=== PATIENT | female | born 1965 | race African-American/Black ===

== ENCOUNTER 2017-08-02 19:39 | Inpatient (IN) | payer OTHER ==
[2017-08-02 20:44] VITALS: BMI 29.0
--- NOTE | 2017-08-02 22:11 | HP ---
Admission ROS [facility] Chief Complaint: Rehab. for alcohol and cocaine dependence Allergies/Adverse Reactions: Allergies Allergy/AdvReac Type Severity Reaction Status Date / Time No Known Drug Allergies Allergy Verified 08/02/17 20:09 fish derived AdvReac Mild Vomiting Verified 08/02/17 20:09 History of Present Illness: 51 years old female is admitted to rehab for alcohol and cocaine dependence. Patient has medical history of HIV, HTN, Gonorrhea and depression. Denies suicidal ideation at this time. Exam Limitations: No Limitations - Ebola screening Have you traveled outside of the country in the last 21 days: No Have you had contact with anyone from an Ebola affected area: No Have you been sick,other than usual withdrawal symptoms: No - Review of Systems Constitutional: No Symptoms Reported EENT: reports: No Symptoms Reported Respiratory: reports: No Symptoms reported Cardiac: reports: No Symptoms Reported GI: reports: No Symptoms Reported : reports: No Symptoms Reported Integumentary: reports: No Symptoms Reported Neuro: reports: No Symptoms reported Endocrine: reports: No Symptoms Reported Hematology: reports: No Symptoms Reported Psychiatric: reports: No Sypmtoms Reported, Mood/Affect Appropiate, Orientated x3 Other Systems: Reviewed and Negative Patient History - Patient Medical History Hx Anemia: Yes Hx Asthma: No Hx Chronic Obstructive Pulmonary Disease (COPD): No Hx Cancer: No Hx Cardiac Disorders: No Hx Congestive Heart Failure: No Hx Hypertension: Yes (on med) Hx Hypercholesterolemia: No Hx Pacemaker: No HX Cerebrovascular Accident: No Hx Seizures: Yes Hx Dementia: No Hx Diabetes: No Hx Gastrointestinal Disorders: No Hx Liver Disease: No Hx Genitourinary Disorders: No Hx Sexually Transmitted Disorders: Yes (Gonorrhea with Tx) Hx Renal Disease (ESRD): No Hx Thyroid Disease: No Hx Human Immunodeficiency Virus (HIV): Yes (Since 1996 on meds) Hx Hepatitis C: No (2016) Hx Depression: Yes Hx Suicide Attempt: Yes (H/o Suicide Attempt years ago overdose) Hx Bipolar Disorder: Yes (ON MEDICATIONS) Hx Schizophrenia: No - Patient Surgical History Past Surgical History: Yes Hx Neurologic Surgery: No Hx Cataract Extraction: No Hx Cardiac Surgery: No Hx Lung Surgery: No Hx Breast Surgery: No Hx Breast Biopsy: No Hx Abdominal Surgery: No Hx Appendectomy: No Hx Cholecystectomy: Yes (05/26 ) Hx Genitourinary Surgery: No Hx Section: Yes (X 1 IN 1991) Hx Orthopedic Surgery: Yes (fx, right knee in 1984) Hx Hysterectomy: No Other Surgical History: BILATERAL CORRECTIVE EYE SX AT 3 YRS OLD Anesthesia Reaction: No - PPD History Previous Implant?: Yes ([facility]) Documented Results: Negative w/proof Date: 06/27/16 Results: 0 mm PPD to be Administered?: Yes - Reproductive History Patient is a Female of Child Bearing Age (11 -55 yrs old): Yes Last Menstrual Period: 08/15/11 Patient : No - Smoking Cessation Smoking history: Never smoked Have you smoked in the past 12 months: No Aproximately how many cigarettes per day: 0 Cigars Per Day: 0 Hx Chewing Tobacco Use: No - Substance & Tx. History Hx Alcohol Use: Yes Hx Substance Use: Yes Substance Use Type: Alcohol, Cocaine Hx Substance Use Treatment: Yes ([facility]) Family Disease History - Family Disease History Family Disease History: Diabetes: Father (HTN; PANCREATIC,ALCOHOLISM-), CA: Grandparent (Grandmother- uterine), Father, Other: Father, Mother (HTN; alcoholic ,dsa,) Admission Physical Exam [facility] - Vital Signs Vital Signs: Vital Signs - 24 hr 08/02/17 20:42 Temperature 96.7 F L Pulse Rate 87 Respiratory 18 Rate Blood Pressure 142/88 - Physical General Appearance: Yes: Within Normal Limits HEENTM: Yes: Within Normal Limits, Other (no teeth) Respiratory: Yes: Lungs Clear, Normal Breath Sounds, No Respiratory Distress Neck: Yes: Supple Breast: Yes: Breast Exam Deferred Cardiology: Yes: Within Normal Limits, Regular Rhythm, Regular Rate, S1, S2 Abdominal: Yes: Normal Bowel Sounds, Soft Genitourinary: Yes: Within Normal Limits Musculoskeletal: Yes: Within Normal Limits Extremities: Yes: Within Normal Limits Neurological: Yes: Within Normal Limits, Alert, Normal Response Integumentary: Yes: Within Normal Limits Lymphatic: Yes: Within Normal Limits - Diagnostic (1) HTN (hypertension) Current Visit: Yes Status: Chronic (2) Alcohol dependence with withdrawal Current Visit: Yes Status: Chronic (3) Depression Current Visit: Yes Status: Chronic (4) Walker as ambulation aid Current Visit: Yes Status: Chronic (5) Alcohol dependence Current Visit: Yes Status: Chronic (6) Anemia Current Visit: Yes Status: Chronic (7) Cocaine dependence Current Visit: Yes Status: Chronic (8) Gastroesophageal reflux disease Current Visit: Yes Status: Chronic (9) Human immunodeficiency virus infection Current Visit: Yes Status: Chronic Cleared for Admission [facility] - Detox or Rehab [facility] Level of Care: Observation Bed Claeared for Rehab Admission: Yes [facility] Breath Alcohol Content Breath Alcohol Content: 0 Urine Pregancy Test - Result Urine Test Results: Negative- NO Line Present Urine Drug Screen - Results Drug Screen Negative: No Urine Drug Screen Results: DARLING-Cocaine Inpatient Rehab Admission - Initial Determination Are CD services needed?: Yes Free of communicable disease: Yes Not in need of hospitalization: Yes - Rehab Admission Criteria Previous failed treatment: Yes Poor recovery environment: Yes Comorbidities: Yes Lacks judgement: No Patient is meeting Inpatient Rehab admission criteria:: Yes
[2017-08-02] MEDS ORDERED: MAGNESIUM CITRATE 300 ML BOTTLE PO PRN (22:22)
[2017-08-02] MEDS ORDERED: ACETAMINOPHEN 325 MG TABLET (FP) PO PRN (22:22)
[2017-08-02] MEDS ORDERED: LOPERAMIDE HCL 2 MG CAPSULE PO PRN (22:22)
[2017-08-02] MEDS ORDERED: MENTHOL/PHENOL 1 EACH UD MM PRN (22:22)
[2017-08-02] MEDS ORDERED: MAG HYDROX/AL HYDROX/SIMETH 30 ML UNIT-DOSE CUP PO PRN (22:22)
[2017-08-02] MEDS ORDERED: MAGNESIUM HYDROX 2400MG/30ML ORAL SUSPENSION 30 ML CUP PO PRN (22:22)
[2017-08-02] MEDS ORDERED: guaiFENesin/D-METHORPHAN HB 10 ML UNIT-DOSE CUPS PO PRN (22:22)
[2017-08-02] MEDS ORDERED: P-EPHED 60MG/TRIPROLIDI 2.5MG TABLET PO PRN (22:22)
[2017-08-03 01:26] LABS: URINE APPEARANCE CLEAR; URINE BILIRUBIN NEGATIVE (NEGATIVE); URINE BLOOD NEGATIVE (NEGATIVE); URINE COLOR YELLOW; URINE GLUCOSE (UA) NEGATIVE (NEGATIVE); URINE KETONE NEGATIVE (NEGATIVE); URINE LEUK ESTERASE NEGATIVE (NEGATIVE); URINE NITRITE NEGATIVE (NEGATIVE); URINE PROTEIN NEGATIVE (NEGATIVE); URINE UROBILINOGEN NEGATIVE mg/dL (0.2-1.0)
[2017-08-03] MEDS: IBUPROFEN 400 MG TABLET (FP) PO PRN ×2 (01:30→06:30)
[2017-08-03] MEDS ORDERED: GABAPENTIN 400 MG CAPSULE (FP) PO SCH (06:00)
[2017-08-03] MEDS: FOLIC ACID 1 MG TABLET (FP) PO SCH (09:53)
[2017-08-03] MEDS: DARUNAVIR ETHANOLATE 800 MG TAB PO SCH (09:54)
[2017-08-03] MEDS: PRENATAL VITAMINS W/ FOLIC ACID TABLET (FP) PO SCH (09:54)
[2017-08-03] MEDS: ABACAVIR SULFATE 300 MG TABLET PO SCH (09:56)
[2017-08-03] MEDS ORDERED: RITONAVIR 100 MG TABLET PO SCH (10:00)
[2017-08-03] MEDS ORDERED: PATIENT'S OWN MEDICATION (NON-FORMULARY) (Abacavir Sulfate/Lamivudine [Epzicom Tablet] 1 T PO SCH (10:00)
[2017-08-03 10:09] LABS: HEMATOCRIT 32.7 % (32.4-45.2); HEMOGLOBIN 10.4 GM/dL (10.7-15.3); MCH 28.9 pg (25.7-33.7); MCHC 31.8 g/dl (32.0-36.0); MEAN CELL VOLUME 90.7 fl (80-96); MEAN PLT VOLUME 7.6 fl (7.5-11.1); PLATELET COUNT 244 K/MM3 (134-434); RBC 3.61 M/mm3 (3.60-5.2)
--- NOTE | 2017-08-03 10:09 | EKG ---
Test Reason : Blood Pressure : / mmHG Vent. Rate : 085 BPM Atrial Rate : 085 BPM P-R Int : 160 ms QRS Dur : 076 ms QT Int : 364 ms P-R-T Axes : 030 021 020 degrees QTc Int : 433 ms NORMAL SINUS RHYTHM SEPTAL INFARCT , AGE UNDETERMINED ABNORMAL ECG NO PREVIOUS ECGS AVAILABLE Confirmed by GUILLERMO BONNER MD ([id number]) on 08/03/2017 10:08:46 AM Referred By: Confirmed By:GUILLERMO BONNER MD
[2017-08-03 10:12] LABS: CHLORIDE 110 mmol/L (98-107); POTASSIUM 4.3 mmol/L (3.5-5.1); SGOT/AST 55 U/L (15-37); SGPT/ALT 51 U/L (12-78); SODIUM 142 mmol/L (136-145)
[2017-08-03 10:18] LABS: ALBUMIN 3.4 g/dl (3.4-5.0); ALK PHOS 82 U/L (45-117); ANION GAP 6 (8-16); BILIRUBIN,TOTAL 0.4 mg/dL (0.2-1.0); BLOOD UREA NITROGEN 20 mg/dL (7-18); CALCIUM 8.7 mg/dL (8.5-10.1); CO2 26 mmol/L (21-32); CREATININE 0.8 mg/dL (0.55-1.02); GLUCOSE,RANDOM 94 mg/dL (74-106); TOT PROT 8.2 g/dl (6.4-8.2)
[2017-08-03] MEDS: RITONAVIR 100 MG TABLET PO SCH (10:55)
--- NOTE | 2017-08-03 11:34 | HP ---
Psychiatrist Admission - Data Date of interview: 08/03/17 Admission source: [facility] Identifying data: This is one of the multiple admissions to [address] [place] [address] for this 56 yo mother of 8,resides at [facility],supported by [facility]. Medical History: Significant for HIV+,HTN,GERD,Anemia,Neuropathy. Psychiatric History: Reports first contact with psychiatrist at 15 yo after DOD when she was admitted to [facility].patient was dx with Bipolar disorder.She reports 7-8 psychiatric hospitalizations.Patient is non compliant with her psychiatric follow up.Currently obtains psychotropic medications from her PCP.Meds:Seroquel 200 mg po hs,Gabapentin 600 mg po tid.Celexa 10 mg po daily.Patient is willing to continue current medications as per plan. Physical/Sexual Abuse/Trauma History: denies Vital Signs: Vital Signs - 24 hr 08/02/17 08/03/17 08/03/17 20:42 01:45 03:30 Temperature 96.7 F L 97.1 F L Pulse Rate 87 84 Respiratory 18 18 16 Rate Blood Pressure 142/88 140/92 08/03/17 08/03/17 06:54 09:23 Temperature 98.0 F Pulse Rate 98 H 106 H Respiratory 18 Rate Blood Pressure 135/85 136/92 Allergies/Adverse Reactions: Allergies Allergy/AdvReac Type Severity Reaction Status Date / Time No Known Drug Allergies Allergy Verified 08/02/17 20:09 fish derived AdvReac Mild Vomiting Verified 08/02/17 20:09 Date of last physical exam: 08/02/17 Concur with the findings of this exam: Yes - Substance Abuse/Tx History Hx Alcohol Use: Yes (reports drinking since 10 yo,2 pints of vodka 3-6 times a week) Hx Substance Use: Yes (crack/cocaine since 23 yo,$100 per week) Substance Use Type: Alcohol, Cocaine Hx Substance Use Treatment: Yes (patient left this program AMA in Jun 2016) Mental Status Exam - Mental Status Exam Alert and Oriented to: Time, Place, Person Cognitive Function: Grossly Intact Patient Appearance: Unkempt Mood: Euthymic Affect: Mood Congruent Patient Behavior: Cooperative Speech Pattern: Clear Voice Loudness: Normal Thought Process: Goal Oriented Thought Disorder: Being Controlled Hallucinations: Denies Suicidal Ideation: Denies Homicidal Ideation: Denies Insight/Judgement: Fair Sleep: Fair Appetite: Good Muscle strength/Tone: Normal Gait/Station: Normal Psychiatric Findings - Problem List ([place] 1, 2,3) (1) Alcohol dependence Current Visit: Yes Status: Chronic (2) Anemia Current Visit: Yes Status: Chronic (3) Cocaine dependence Current Visit: Yes Status: Chronic (4) Gastroesophageal reflux disease Current Visit: Yes Status: Chronic (5) HTN (hypertension) Current Visit: Yes Status: Chronic (6) Human immunodeficiency virus infection Current Visit: Yes Status: Chronic (7) Bipolar II disorder Current Visit: Yes Status: Chronic - Initial Treatment Plan Initial Treatment Plan: Seroquel 200 mg po hs,Celexa 10 mg po daily,Neurontin 600 mg po tid.Will monitor progress.
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
[2017-08-03] MEDS: LIDOCAINE 5% TOPICAL PATCH TP SCH (12:56)
[2017-08-03] MEDS: PANTOPRAZOLE 40 MG TABLET (FP) PO SCH (12:57)
[2017-08-03] MEDS: NAPROXEN 500 MG TABLET (FP) PO SCH ×2 (12:57→21:14)
[2017-08-03] MEDS: amLODIPine BESYLATE 10 MG TABLET (FP) PO SCH (12:58)
[2017-08-03] MEDS: GABAPENTIN 300 MG CAPSULE (FP) PO SCH ×2 (13:02→21:14)
[2017-08-03] MEDS: CITALOPRAM HYDROBROMIDE 10 MG TABLET (FP) PO SCH (13:19)
[2017-08-03] MEDS: THIAMINE HCL 100 MG TABLET (FP) PO SCH (21:14)
[2017-08-03] MEDS: QUEtiapine FUMARATE 200 MG TABLET PO SCH (21:15)
[2017-08-03] MEDS: ATORVASTATIN CA 10 MG TABLET (FP) PO SCH (21:16)
[2017-08-03] MEDS: AMITRIPTYLINE HCL 25 MG TABLET (FP) PO SCH (21:16)
[2017-08-03] MEDS: LIDOCAINE PATCH REMOVAL MC SCH (21:16)
[2017-08-04] MEDS: GABAPENTIN 300 MG CAPSULE (FP) PO SCH ×3 (06:25→21:30)
[2017-08-04] MEDS ORDERED: PT OWN MED DRAWER 7, Y5N ONE (06:37)
[2017-08-04] MEDS: DARUNAVIR ETHANOLATE 800 MG TAB PO SCH (07:35)
[2017-08-04] MEDS: RITONAVIR 100 MG TABLET PO SCH (07:35)
[2017-08-04] MEDS: amLODIPine BESYLATE 10 MG TABLET (FP) PO SCH (10:45)
[2017-08-04] MEDS: CITALOPRAM HYDROBROMIDE 10 MG TABLET (FP) PO SCH (10:45)
[2017-08-04] MEDS: ABACAVIR SULFATE 300 MG TABLET PO SCH (10:46)
[2017-08-04] MEDS: NAPROXEN 500 MG TABLET (FP) PO SCH ×2 (10:48→21:30)
[2017-08-04] MEDS: PANTOPRAZOLE 40 MG TABLET (FP) PO SCH (10:48)
[2017-08-04] MEDS: FOLIC ACID 1 MG TABLET (FP) PO SCH (10:50)
[2017-08-04] MEDS: PRENATAL VITAMINS W/ FOLIC ACID TABLET (FP) PO SCH (10:51)
[2017-08-04] MEDS: LIDOCAINE 5% TOPICAL PATCH TP SCH (10:52)
[2017-08-04] MEDS ORDERED: COLLOIDAL OATMEAL 1 BAR EACH TP PRN (12:37)
[2017-08-04] MEDS: QUEtiapine FUMARATE 200 MG TABLET PO SCH (21:30)
[2017-08-04] MEDS: ATORVASTATIN CA 10 MG TABLET (FP) PO SCH (21:30)
[2017-08-04] MEDS: THIAMINE HCL 100 MG TABLET (FP) PO SCH (21:30)
[2017-08-04] MEDS: AMITRIPTYLINE HCL 25 MG TABLET (FP) PO SCH (21:30)
[2017-08-04] MEDS: LIDOCAINE PATCH REMOVAL MC SCH (21:31)
[2017-08-05] MEDS ORDERED: PT OWN MED DRAWER 7, Y5N ONE ×2 (03:05→06:52)
[2017-08-05] MEDS: GABAPENTIN 300 MG CAPSULE (FP) PO SCH ×3 (06:51→21:33)
[2017-08-05] MEDS: DARUNAVIR ETHANOLATE 800 MG TAB PO SCH (07:42)
[2017-08-05] MEDS: RITONAVIR 100 MG TABLET PO SCH (07:42)
[2017-08-05] MEDS: CITALOPRAM HYDROBROMIDE 10 MG TABLET (FP) PO SCH (10:19)
[2017-08-05] MEDS: PRENATAL VITAMINS W/ FOLIC ACID TABLET (FP) PO SCH (10:19)
[2017-08-05] MEDS: LIDOCAINE 5% TOPICAL PATCH TP SCH (10:19)
[2017-08-05] MEDS: PANTOPRAZOLE 40 MG TABLET (FP) PO SCH (10:19)
[2017-08-05] MEDS: ABACAVIR SULFATE 300 MG TABLET PO SCH (10:19)
[2017-08-05] MEDS: NAPROXEN 500 MG TABLET (FP) PO SCH ×2 (10:19→21:33)
[2017-08-05] MEDS: amLODIPine BESYLATE 10 MG TABLET (FP) PO SCH (10:20)
[2017-08-05] MEDS: THIAMINE HCL 100 MG TABLET (FP) PO SCH (21:32)
[2017-08-05] MEDS: QUEtiapine FUMARATE 200 MG TABLET PO SCH (21:33)
[2017-08-05] MEDS: ATORVASTATIN CA 10 MG TABLET (FP) PO SCH (21:33)
[2017-08-05] MEDS: AMITRIPTYLINE HCL 25 MG TABLET (FP) PO SCH (21:33)
[2017-08-05] MEDS: LIDOCAINE PATCH REMOVAL MC SCH (21:51)
[2017-08-06] MEDS ORDERED: PT OWN MED DRAWER 7, Y5N ONE ×2 (05:55→09:46)
[2017-08-06] MEDS: GABAPENTIN 300 MG CAPSULE (FP) PO SCH ×3 (06:47→21:22)
[2017-08-06] MEDS: DARUNAVIR ETHANOLATE 800 MG TAB PO SCH (07:06)
[2017-08-06] MEDS: RITONAVIR 100 MG TABLET PO SCH (07:07)
[2017-08-06] MEDS: NAPROXEN 500 MG TABLET (FP) PO SCH ×2 (09:44→21:22)
[2017-08-06] MEDS: ABACAVIR SULFATE 300 MG TABLET PO SCH (09:44)
[2017-08-06] MEDS: PANTOPRAZOLE 40 MG TABLET (FP) PO SCH (09:45)
[2017-08-06] MEDS: CITALOPRAM HYDROBROMIDE 10 MG TABLET (FP) PO SCH (09:45)
[2017-08-06] MEDS: PRENATAL VITAMINS W/ FOLIC ACID TABLET (FP) PO SCH (09:45)
[2017-08-06] MEDS: amLODIPine BESYLATE 10 MG TABLET (FP) PO SCH (09:45)
[2017-08-06] MEDS: LIDOCAINE 5% TOPICAL PATCH TP SCH (09:45)
[2017-08-06] MEDS: THIAMINE HCL 100 MG TABLET (FP) PO SCH (21:21)
[2017-08-06] MEDS: AMITRIPTYLINE HCL 25 MG TABLET (FP) PO SCH (21:22)
[2017-08-06] MEDS: QUEtiapine FUMARATE 200 MG TABLET PO SCH (21:22)
[2017-08-06] MEDS: ATORVASTATIN CA 10 MG TABLET (FP) PO SCH (21:22)
[2017-08-06] MEDS: LIDOCAINE PATCH REMOVAL MC SCH (21:23)
[2017-08-07] MEDS: GABAPENTIN 300 MG CAPSULE (FP) PO SCH ×3 (06:43→21:30)
[2017-08-07] MEDS: DARUNAVIR ETHANOLATE 800 MG TAB PO SCH (07:39)
[2017-08-07] MEDS: RITONAVIR 100 MG TABLET PO SCH (07:39)
[2017-08-07] MEDS ORDERED: PT OWN MED DRAWER 7, Y5N ONE ×2 (07:40→08:57)
[2017-08-07] MEDS: LIDOCAINE 5% TOPICAL PATCH TP SCH (09:52)
[2017-08-07] MEDS: NAPROXEN 500 MG TABLET (FP) PO SCH ×2 (09:53→21:30)
[2017-08-07] MEDS: amLODIPine BESYLATE 10 MG TABLET (FP) PO SCH (09:53)
[2017-08-07] MEDS: PRENATAL VITAMINS W/ FOLIC ACID TABLET (FP) PO SCH (09:53)
[2017-08-07] MEDS: ABACAVIR SULFATE 300 MG TABLET PO SCH (09:53)
[2017-08-07] MEDS: PANTOPRAZOLE 40 MG TABLET (FP) PO SCH (09:53)
[2017-08-07] MEDS: CITALOPRAM HYDROBROMIDE 10 MG TABLET (FP) PO SCH (09:54)
[2017-08-07] MEDS: QUEtiapine FUMARATE 200 MG TABLET PO SCH (21:29)
[2017-08-07] MEDS: ATORVASTATIN CA 10 MG TABLET (FP) PO SCH (21:29)
[2017-08-07] MEDS: THIAMINE HCL 100 MG TABLET (FP) PO SCH (21:29)
[2017-08-07] MEDS: AMITRIPTYLINE HCL 25 MG TABLET (FP) PO SCH (21:30)
[2017-08-07] MEDS: LIDOCAINE PATCH REMOVAL MC SCH (21:31)
[2017-08-08] MEDS ORDERED: PT OWN MED DRAWER 7, Y5N ONE ×3 (05:49→08:33)
[2017-08-08] MEDS: GABAPENTIN 300 MG CAPSULE (FP) PO SCH ×3 (06:42→21:18)
[2017-08-08] MEDS: RITONAVIR 100 MG TABLET PO SCH (07:35)
[2017-08-08] MEDS: DARUNAVIR ETHANOLATE 800 MG TAB PO SCH (07:35)
[2017-08-08] MEDS: amLODIPine BESYLATE 10 MG TABLET (FP) PO SCH (09:50)
[2017-08-08] MEDS: PRENATAL VITAMINS W/ FOLIC ACID TABLET (FP) PO SCH (09:50)
[2017-08-08] MEDS: PANTOPRAZOLE 40 MG TABLET (FP) PO SCH (09:50)
[2017-08-08] MEDS: LIDOCAINE 5% TOPICAL PATCH TP SCH (09:50)
[2017-08-08] MEDS: CITALOPRAM HYDROBROMIDE 10 MG TABLET (FP) PO SCH (09:50)
[2017-08-08] MEDS: NAPROXEN 500 MG TABLET (FP) PO SCH ×2 (09:50→21:19)
[2017-08-08] MEDS: ABACAVIR SULFATE 300 MG TABLET PO SCH (09:50)
[2017-08-08] MEDS: LIDOCAINE PATCH REMOVAL MC SCH (21:19)
[2017-08-08] MEDS: AMITRIPTYLINE HCL 25 MG TABLET (FP) PO SCH (21:19)
[2017-08-08] MEDS: THIAMINE HCL 100 MG TABLET (FP) PO SCH (21:19)
[2017-08-08] MEDS: QUEtiapine FUMARATE 200 MG TABLET PO SCH (21:19)
[2017-08-08] MEDS: ATORVASTATIN CA 10 MG TABLET (FP) PO SCH (21:19)
[2017-08-09] MEDS ORDERED: PT OWN MED DRAWER 7, Y5N ONE (05:19)
[2017-08-09] MEDS: GABAPENTIN 300 MG CAPSULE (FP) PO SCH ×3 (06:16→21:26)
[2017-08-09] MEDS: DARUNAVIR ETHANOLATE 800 MG TAB PO SCH (09:00)
[2017-08-09] MEDS: RITONAVIR 100 MG TABLET PO SCH (09:01)
[2017-08-09] MEDS: PANTOPRAZOLE 40 MG TABLET (FP) PO SCH (09:02)
[2017-08-09] MEDS: PRENATAL VITAMINS W/ FOLIC ACID TABLET (FP) PO SCH (09:02)
[2017-08-09] MEDS: ABACAVIR SULFATE 300 MG TABLET PO SCH (09:02)
[2017-08-09] MEDS: LIDOCAINE 5% TOPICAL PATCH TP SCH (09:03)
[2017-08-09] MEDS: CITALOPRAM HYDROBROMIDE 10 MG TABLET (FP) PO SCH (09:03)
[2017-08-09] MEDS: amLODIPine BESYLATE 10 MG TABLET (FP) PO SCH (09:03)
[2017-08-09] MEDS: NAPROXEN 500 MG TABLET (FP) PO SCH ×2 (09:03→21:26)
[2017-08-09] MEDS: LIDOCAINE PATCH REMOVAL MC SCH (21:26)
[2017-08-09] MEDS: ATORVASTATIN CA 10 MG TABLET (FP) PO SCH (21:26)
[2017-08-09] MEDS: QUEtiapine FUMARATE 200 MG TABLET PO SCH (21:26)
[2017-08-09] MEDS: THIAMINE HCL 100 MG TABLET (FP) PO SCH (21:26)
[2017-08-09] MEDS: AMITRIPTYLINE HCL 25 MG TABLET (FP) PO SCH (21:26)
[2017-08-10] MEDS ORDERED: PT OWN MED DRAWER 7, Y5N ONE (05:28)
[2017-08-10] MEDS: GABAPENTIN 300 MG CAPSULE (FP) PO SCH ×3 (06:37→21:39)
[2017-08-10] MEDS: DARUNAVIR ETHANOLATE 800 MG TAB PO SCH (07:22)
[2017-08-10] MEDS: RITONAVIR 100 MG TABLET PO SCH (07:22)
[2017-08-10] MEDS: NAPROXEN 500 MG TABLET (FP) PO SCH ×2 (10:02→21:39)
[2017-08-10] MEDS: ABACAVIR SULFATE 300 MG TABLET PO SCH (10:02)
[2017-08-10] MEDS: PANTOPRAZOLE 40 MG TABLET (FP) PO SCH (10:02)
[2017-08-10] MEDS: PRENATAL VITAMINS W/ FOLIC ACID TABLET (FP) PO SCH (10:02)
[2017-08-10] MEDS: CITALOPRAM HYDROBROMIDE 10 MG TABLET (FP) PO SCH (10:02)
[2017-08-10] MEDS: LIDOCAINE 5% TOPICAL PATCH TP SCH (10:03)
[2017-08-10] MEDS: amLODIPine BESYLATE 10 MG TABLET (FP) PO SCH (10:03)
[2017-08-10] MEDS: ATORVASTATIN CA 10 MG TABLET (FP) PO SCH (21:39)
[2017-08-10] MEDS: AMITRIPTYLINE HCL 25 MG TABLET (FP) PO SCH (21:39)
[2017-08-10] MEDS: QUEtiapine FUMARATE 200 MG TABLET PO SCH (21:39)
[2017-08-10] MEDS: THIAMINE HCL 100 MG TABLET (FP) PO SCH (21:39)
[2017-08-10] MEDS: LIDOCAINE PATCH REMOVAL MC SCH (21:40)
[2017-08-11] MEDS ORDERED: PT OWN MED DRAWER 7, Y5N ONE ×2 (06:07→09:16)
[2017-08-11] MEDS: GABAPENTIN 300 MG CAPSULE (FP) PO SCH ×3 (06:37→21:37)
[2017-08-11] MEDS: RITONAVIR 100 MG TABLET PO SCH (07:32)
[2017-08-11] MEDS: ABACAVIR SULFATE 300 MG TABLET PO SCH ×2 (07:32→10:27)
[2017-08-11] MEDS: DARUNAVIR ETHANOLATE 800 MG TAB PO SCH (07:32)
[2017-08-11] MEDS: LIDOCAINE 5% TOPICAL PATCH TP SCH (10:25)
[2017-08-11] MEDS: PANTOPRAZOLE 40 MG TABLET (FP) PO SCH (10:26)
[2017-08-11] MEDS: NAPROXEN 500 MG TABLET (FP) PO SCH ×2 (10:26→21:37)
[2017-08-11] MEDS: amLODIPine BESYLATE 10 MG TABLET (FP) PO SCH (10:26)
[2017-08-11] MEDS: CITALOPRAM HYDROBROMIDE 10 MG TABLET (FP) PO SCH (10:26)
[2017-08-11] MEDS: PRENATAL VITAMINS W/ FOLIC ACID TABLET (FP) PO SCH (10:26)
[2017-08-11] MEDS: LIDOCAINE PATCH REMOVAL MC SCH (21:37)
[2017-08-11] MEDS: ATORVASTATIN CA 10 MG TABLET (FP) PO SCH (21:37)
[2017-08-11] MEDS: AMITRIPTYLINE HCL 25 MG TABLET (FP) PO SCH (21:37)
[2017-08-11] MEDS: THIAMINE HCL 100 MG TABLET (FP) PO SCH (21:37)
[2017-08-11] MEDS: QUEtiapine FUMARATE 200 MG TABLET PO SCH (21:37)
[2017-08-12] MEDS ORDERED: PT OWN MED DRAWER 7, Y5N ONE ×4 (05:51→07:55)
[2017-08-12] MEDS: GABAPENTIN 300 MG CAPSULE (FP) PO SCH ×3 (06:21→21:40)
[2017-08-12] MEDS: RITONAVIR 100 MG TABLET PO SCH (07:11)
[2017-08-12] MEDS: DARUNAVIR ETHANOLATE 800 MG TAB PO SCH (07:11)
[2017-08-12] MEDS: ABACAVIR SULFATE 300 MG TABLET PO SCH (07:52)
[2017-08-12] MEDS: CITALOPRAM HYDROBROMIDE 10 MG TABLET (FP) PO SCH (10:54)
[2017-08-12] MEDS: NAPROXEN 500 MG TABLET (FP) PO SCH ×2 (10:54→21:40)
[2017-08-12] MEDS: LIDOCAINE 5% TOPICAL PATCH TP SCH (10:54)
[2017-08-12] MEDS: PRENATAL VITAMINS W/ FOLIC ACID TABLET (FP) PO SCH (10:54)
[2017-08-12] MEDS: PANTOPRAZOLE 40 MG TABLET (FP) PO SCH (10:54)
[2017-08-12] MEDS: amLODIPine BESYLATE 10 MG TABLET (FP) PO SCH (10:54)
--- NOTE | 2017-08-12 11:10 | PN ---
Psychiatric Progress Note Vital Signs: Vital Signs Period Temp Pulse Resp BP Sys/Pichardo Pulse Ox Last 24 Hr 98.7 F 64-110 17-18 93-95/67-69 Date of Session: 08/12/17 Chief Complaint:: Follow up visit before discharge. HPI: Patient addressed Alcohol and Cocaine dependence comorbid with Bipolar II Disorder. ROS: Significant for Anemia,HIV+,GERD. Current Medications: Active Medications Generic Name Dose Route Start Last Admin Trade Name Freq PRN Reason Stop Dose Admin Abacavir Sulfate 600 mg 08/12/17 08:00 08/12/17 07:52 Ziagen - PO 600 mg DAILY@0800 MARY Administration Acetaminophen 650 mg 08/02/17 22:22 08/11/17 14:09 Tylenol - PO 650 mg Q4H PRN Administration PAIN Al Hydroxide/Mg Hydroxide 30 ml 08/02/17 22:22 Mylanta Oral Suspension - PO Q6H PRN DYSPEPSIA Amitriptyline HCl 25 mg 08/03/17 22:00 08/11/17 21:37 Elavil - PO 25 mg HS MARY Administration Amlodipine Besylate 10 mg 08/03/17 12:15 08/12/17 10:54 Norvasc - PO 10 mg DAILY MARY Administration Atorvastatin Calcium 10 mg 08/03/17 22:00 08/11/17 21:37 Lipitor - PO 10 mg HS MARY Administration Citalopram Hydrobromide 10 mg 08/03/17 13:00 08/12/17 10:54 Celexa - PO 10 mg DAILY MARY Administration Colloidal Oatmeal 1 applic 08/04/17 12:37 08/08/17 21:21 Aveeno Soap - TP 1 applic DAILY PRN Administration HYGEINE Darunavir 800 mg 08/03/17 10:00 08/12/17 07:11 Prezista - PO 800 mg DAILY@0800 MARY Administration Eucalyptus/Menthol/Phenol/Sorbitol 1 each 08/02/17 22:22 Cepastat Lozenge - MM Q4H PRN SORE THROAT Gabapentin 600 mg 08/03/17 14:00 08/12/17 06:21 Neurontin - PO 600 mg TID MARY Administration Guaifenesin 10 ml 08/02/17 22:22 Robitussin Dm - PO Q6H PRN COUGH Ibuprofen 400 mg 08/02/17 22:22 12/20/17 06:30 Motrin - PO 400 mg Q6H PRN Administration SEVERE PAIN Lamivudine 300 mg 08/12/17 08:00 08/12/17 07:55 Epivir - PO 300 mg DAILY@0800 MARY Administration Lidocaine 1 patch 08/03/17 12:15 08/12/17 10:54 Lidoderm Patch - TP 1 patch DAILY MARY Administration Loperamide HCl 4 mg 08/02/17 22:22 Imodium - PO Q6H PRN DIARRHEA Magnesium Citrate 300 ml 08/02/17 22:22 Citroma - PO Q48H PRN CONSTIPATION Magnesium Hydroxide 30 ml 08/02/17 22:22 Milk Of Magnesia - PO DAILY PRN CONSTIPATION Miscellaneous 1 each 08/03/17 22:00 08/11/17 21:37 Lidoderm Patch Removal MC Not Given DAILY@2200 [facility] Naproxen 500 mg 08/03/17 12:15 08/12/17 10:54 Naprosyn - PO 500 mg BID MARY Administration Pantoprazole Sodium 40 mg 08/03/17 12:15 08/12/17 10:54 Protonix - PO 40 mg DAILY MARY Administration Multivit/Folic Acid/Iron 1 tab 08/03/17 10:00 08/12/17 10:54 Vitamins (Sjr) - PO 1 tab DAILY MARY Administration Pseudoephedrine/Triprolidine 1 combo 08/02/17 22:22 08/05/17 06:53 Actifed - PO 1 combo TID PRN Administration NASAL CONGESTION Quetiapine Fumarate 200 mg 08/03/17 22:00 08/11/17 21:37 Seroquel - PO 200 mg HS MARY Administration Ritonavir 100 mg 08/03/17 10:55 08/12/17 07:11 Norvir - PO 100 mg DAILY@0800 MARY Administration Thiamine HCl 100 mg 08/03/17 22:00 08/11/17 21:37 Vitamin B1 - PO 100 mg HS MARY Administration Current Side Effect: No Lab tests ordered: No Lab tests reviewed: Yes Provider note:: Patient was seen today.She will complete this program on Aug 16, 2017.Patient appears stable.she haw met her treatment goals and will continue to address her issues on outpaatient basis at [facility].Patient reports finding that Elavil 25 mg po daily,Neurontin 400 mg po tid,Celexa 10 mg po daily and Seroquel 200 mg po hs help to cope with mood swings,anxiety,depression,insomnia.Scripts for 30 days provided. Supportive therapy provided focusing on relapse prevention,coping skills,support utilization to maintain recovery has been discussed with the patient. Mental Status Exam - Mental Status Exam Alert and Oriented to: Time, Place, Person Cognitive Function: Grossly Intact Patient Appearance: Well Groomed Mood: Hopeful, Euthymic Affect: Mood Congruent Patient Behavior: Cooperative Speech Pattern: Clear Voice Loudness: Normal Thought Process: Goal Oriented Thought Disorder: Not Present Hallucinations: Denies Suicidal Ideation: Denies Homicidal Ideation: Denies Insight/Judgement: Fair Sleep: Fair Appetite: Good Muscle strength/Tone: Normal Gait/Station: Normal Psychiatric Treatment Plan - Problem List (1) Alcohol dependence Current Visit: Yes (2) Anemia Current Visit: Yes (3) Cocaine dependence Current Visit: Yes (4) Gastroesophageal reflux disease Current Visit: Yes (5) HTN (hypertension) Current Visit: Yes (6) Human immunodeficiency virus infection Current Visit: Yes (7) Bipolar II disorder Current Visit: Yes
[2017-08-12] MEDS: AMITRIPTYLINE HCL 25 MG TABLET (FP) PO SCH (21:40)
[2017-08-12] MEDS: ATORVASTATIN CA 10 MG TABLET (FP) PO SCH (21:41)
[2017-08-12] MEDS: QUEtiapine FUMARATE 200 MG TABLET PO SCH (21:41)
[2017-08-12] MEDS: THIAMINE HCL 100 MG TABLET (FP) PO SCH (21:41)
[2017-08-12] MEDS: LIDOCAINE PATCH REMOVAL MC SCH (21:42)
[2017-08-13] MEDS ORDERED: PT OWN MED DRAWER 7, Y5N ONE ×2 (03:29→07:58)
[2017-08-13] MEDS: GABAPENTIN 300 MG CAPSULE (FP) PO SCH ×3 (06:38→21:26)
[2017-08-13] MEDS: ABACAVIR SULFATE 300 MG TABLET PO SCH (07:52)
[2017-08-13] MEDS: DARUNAVIR ETHANOLATE 800 MG TAB PO SCH (07:55)
[2017-08-13] MEDS: RITONAVIR 100 MG TABLET PO SCH (07:55)
[2017-08-13] MEDS: NAPROXEN 500 MG TABLET (FP) PO SCH ×2 (10:09→21:26)
[2017-08-13] MEDS: PRENATAL VITAMINS W/ FOLIC ACID TABLET (FP) PO SCH (10:09)
[2017-08-13] MEDS: CITALOPRAM HYDROBROMIDE 10 MG TABLET (FP) PO SCH (10:10)
[2017-08-13] MEDS: LIDOCAINE 5% TOPICAL PATCH TP SCH (10:10)
[2017-08-13] MEDS: PANTOPRAZOLE 40 MG TABLET (FP) PO SCH (10:10)
[2017-08-13] MEDS: amLODIPine BESYLATE 10 MG TABLET (FP) PO SCH (10:10)
[2017-08-13] MEDS: ATORVASTATIN CA 10 MG TABLET (FP) PO SCH (21:26)
[2017-08-13] MEDS: THIAMINE HCL 100 MG TABLET (FP) PO SCH (21:26)
[2017-08-13] MEDS: LIDOCAINE PATCH REMOVAL MC SCH (21:26)
[2017-08-13] MEDS: AMITRIPTYLINE HCL 25 MG TABLET (FP) PO SCH (21:27)
[2017-08-13] MEDS: QUEtiapine FUMARATE 200 MG TABLET PO SCH (21:27)
[2017-08-14] MEDS: GABAPENTIN 300 MG CAPSULE (FP) PO SCH ×3 (06:32→21:25)
[2017-08-14] MEDS: ABACAVIR SULFATE 300 MG TABLET PO SCH (07:50)
[2017-08-14] MEDS: DARUNAVIR ETHANOLATE 800 MG TAB PO SCH (07:51)
[2017-08-14] MEDS: RITONAVIR 100 MG TABLET PO SCH (07:51)
[2017-08-14] MEDS ORDERED: PT OWN MED DRAWER 7, Y5N ONE (07:59)
[2017-08-14] MEDS: LIDOCAINE 5% TOPICAL PATCH TP SCH (10:16)
[2017-08-14] MEDS: PRENATAL VITAMINS W/ FOLIC ACID TABLET (FP) PO SCH (10:16)
[2017-08-14] MEDS: NAPROXEN 500 MG TABLET (FP) PO SCH ×2 (10:16→21:25)
[2017-08-14] MEDS: amLODIPine BESYLATE 10 MG TABLET (FP) PO SCH (10:17)
[2017-08-14] MEDS: PANTOPRAZOLE 40 MG TABLET (FP) PO SCH (10:17)
[2017-08-14] MEDS: CITALOPRAM HYDROBROMIDE 10 MG TABLET (FP) PO SCH (10:17)
[2017-08-14] MEDS: AMITRIPTYLINE HCL 25 MG TABLET (FP) PO SCH (21:25)
[2017-08-14] MEDS: QUEtiapine FUMARATE 200 MG TABLET PO SCH (21:25)
[2017-08-14] MEDS: ATORVASTATIN CA 10 MG TABLET (FP) PO SCH (21:25)
[2017-08-14] MEDS: THIAMINE HCL 100 MG TABLET (FP) PO SCH (21:25)
[2017-08-14] MEDS: LIDOCAINE PATCH REMOVAL MC SCH (21:27)
[2017-08-15] MEDS: GABAPENTIN 300 MG CAPSULE (FP) PO SCH ×3 (06:35→21:31)
[2017-08-15] MEDS: DARUNAVIR ETHANOLATE 800 MG TAB PO SCH (08:01)
[2017-08-15] MEDS: ABACAVIR SULFATE 300 MG TABLET PO SCH (08:01)
[2017-08-15] MEDS: RITONAVIR 100 MG TABLET PO SCH (08:02)
[2017-08-15] MEDS: NAPROXEN 500 MG TABLET (FP) PO SCH ×2 (10:21→21:31)
[2017-08-15] MEDS: PANTOPRAZOLE 40 MG TABLET (FP) PO SCH (10:21)
[2017-08-15] MEDS: CITALOPRAM HYDROBROMIDE 10 MG TABLET (FP) PO SCH (10:21)
[2017-08-15] MEDS: LIDOCAINE 5% TOPICAL PATCH TP SCH (10:21)
[2017-08-15] MEDS: PRENATAL VITAMINS W/ FOLIC ACID TABLET (FP) PO SCH (10:21)
[2017-08-15] MEDS: amLODIPine BESYLATE 10 MG TABLET (FP) PO SCH (10:22)
[2017-08-15] MEDS: AMITRIPTYLINE HCL 25 MG TABLET (FP) PO SCH (21:31)
[2017-08-15] MEDS: ATORVASTATIN CA 10 MG TABLET (FP) PO SCH (21:31)
[2017-08-15] MEDS: THIAMINE HCL 100 MG TABLET (FP) PO SCH (21:31)
[2017-08-15] MEDS: QUEtiapine FUMARATE 200 MG TABLET PO SCH (21:31)
[2017-08-15] MEDS: LIDOCAINE PATCH REMOVAL MC SCH (21:32)
[2017-08-16] MEDS: GABAPENTIN 300 MG CAPSULE (FP) PO SCH (06:29)
[2017-08-16 07:23] VITALS: BP 123/86; PULSE 98; TEMP 97.3
[2017-08-16] MEDS: ABACAVIR SULFATE 300 MG TABLET PO SCH (07:45)
[2017-08-16] MEDS: RITONAVIR 100 MG TABLET PO SCH (07:45)
[2017-08-16] MEDS: DARUNAVIR ETHANOLATE 800 MG TAB PO SCH (07:45)
[2017-08-16] MEDS: PRENATAL VITAMINS W/ FOLIC ACID TABLET (FP) PO SCH (09:59)
[2017-08-16] MEDS: LIDOCAINE 5% TOPICAL PATCH TP SCH (09:59)
[2017-08-16] MEDS: CITALOPRAM HYDROBROMIDE 10 MG TABLET (FP) PO SCH (09:59)
[2017-08-16] MEDS: PANTOPRAZOLE 40 MG TABLET (FP) PO SCH (09:59)
[2017-08-16] MEDS: amLODIPine BESYLATE 10 MG TABLET (FP) PO SCH (09:59)
[2017-08-16] MEDS: NAPROXEN 500 MG TABLET (FP) PO SCH (09:59)
[2017-08-16] MEDS ORDERED: PT OWN MED DRAWER 7, Y5N ONE (10:01)
== END 2017-08-16 10:03 | disposition home or self-care (01) | DRG 772 ==
LOC: YASAS 19:39 → Y3E 21:25
PROVIDERS: ADMIT Psychiatry & Neurology Psychiatry; ATTEND Psychiatry & Neurology Psychiatry
PROC: HZ42ZZZ Group Counseling for Substance Abuse Treatment, Cognitive-Behavioral (ICD-10-PCS; principal; 2017-07-31)
DX: F10.20 Alcohol dependence, uncomplicated (principal); F14.20 Cocaine dependence, uncomplicated; F31.81 Bipolar II disorder; I10 Essential (primary) hypertension; D64.9 Anemia, unspecified; K21.9 Gastro-esophageal reflux disease without esophagitis; Z21 Asymptomatic human immunodeficiency virus [HIV] infection status; G62.9 Polyneuropathy, unspecified; R26.2 Difficulty in walking, not elsewhere classified; Z99.89 Dependence on other enabling machines and devices; Z91.013 Allergy to seafood; Z87.42 Personal history of other diseases of the female genital tract; Z86.69 Personal history of other diseases of the nervous system and sense organs; Z91.5 Personal history of self-harm
CPT/HCPCS: 36415; 80053; 81003; 85027; 86593; 93005; 93010

== ENCOUNTER 2018-01-30 13:06 | Inpatient (IN) | payer OTHER ==
[2018-01-30 13:20] VITALS: BMI 30.3
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
[2018-01-30] MEDS ORDERED: guaiFENesin/D-METHORPHAN HB 10 ML UNIT-DOSE CUPS PO PRN (15:12)
[2018-01-30] MEDS ORDERED: MAGNESIUM HYDROX 2400MG/30ML ORAL SUSPENSION 30 ML CUP PO PRN (15:12)
[2018-01-30] MEDS ORDERED: P-EPHED 60MG/TRIPROLIDI 2.5MG TABLET PO PRN (15:12)
[2018-01-30] MEDS ORDERED: MENTHOL/PHENOL 1 EACH UD MM PRN (15:12)
[2018-01-30] MEDS ORDERED: MAG HYDROX/AL HYDROX/SIMETH 30 ML UNIT-DOSE CUP PO PRN (15:12)
[2018-01-30] MEDS ORDERED: IBUPROFEN 400 MG TABLET (FP) PO PRN (15:12)
[2018-01-30] MEDS ORDERED: ACETAMINOPHEN 325 MG TABLET (FP) PO PRN (15:12)
[2018-01-30] MEDS ORDERED: MAGNESIUM CITRATE 300 ML BOTTLE PO PRN (15:12)
[2018-01-30] MEDS ORDERED: LOPERAMIDE HCL 2 MG CAPSULE PO PRN (15:12)
[2018-01-30] MEDS ORDERED: diazePAM 5 MG TABLET PO ONE (15:45)
[2018-01-30] MEDS ORDERED: MELATONIN 5 MG TABLETS PO PRN (22:00)
[2018-01-30] MEDS: ATORVASTATIN CA 10 MG TABLET (FP) PO SCH (22:17)
[2018-01-30] MEDS: diazePAM 5 MG TABLET PO SCH (22:17)
[2018-01-30] MEDS: GABAPENTIN 300 MG CAPSULE (FP) PO SCH (22:17)
[2018-01-30] MEDS: THIAMINE HCL 100 MG TABLET (FP) PO SCH (22:18)
[2018-01-31] MEDS: diazePAM 5 MG TABLET PO SCH ×3 (05:28→22:10)
[2018-01-31] MEDS: GABAPENTIN 300 MG CAPSULE (FP) PO SCH ×3 (05:29→22:11)
[2018-01-31] MEDS: DARUNAVIR ETHANOLATE 800 MG TAB PO SCH (08:46)
[2018-01-31] MEDS: EMTRICITABINE 200MG/TENOFOVIR 300MG PO SCH (08:46)
[2018-01-31] MEDS: RITONAVIR 100 MG TABLET PO SCH (08:47)
[2018-01-31] MEDS ORDERED: amLODIPine BESYLATE 10 MG TABLET (FP) PO SCH (10:00)
[2018-01-31] MEDS: PRENATAL VITAMINS W/ FOLIC ACID TABLET (FP) PO SCH (10:01)
[2018-01-31] MEDS: amLODIPine BESYLATE 10 MG TABLET (FP) PO SCH (10:01)
[2018-01-31] MEDS: diazePAM 5 MG TABLET PO PRN ×2 (10:02→17:42)
[2018-01-31 10:09] LABS: HEMATOCRIT 29.2 % (32.4-45.2); HEMOGLOBIN 9.5 GM/dL (10.7-15.3); MCHC 32.4 g/dl (32.0-36.0); MEAN CELL VOLUME 89.4 fl (80-96); MEAN PLT VOLUME 8.4 fl (7.5-11.1); PLATELET COUNT 163 K/MM3 (134-434); RBC 3.27 M/mm3 (3.60-5.2); RDW 16.4 % (11.6-15.6); WHITE BLOOD COUNT 4.3 K/mm3 (4.0-10.0)
[2018-01-31 10:25] LABS: CHLORIDE 110 mmol/L (98-107); POTASSIUM 3.7 mmol/L (3.5-5.1); SODIUM 144 mmol/L (136-145)
[2018-01-31 11:37] LABS: ALBUMIN 2.8 g/dl (3.4-5.0); ALK PHOS 77 U/L (45-117); ANION GAP 9 (8-16); BILIRUBIN,TOTAL 0.2 mg/dL (0.2-1.0); BLOOD UREA NITROGEN 13 mg/dL (7-18); CALCIUM 8.2 mg/dL (8.5-10.1); CO2 25 mmol/L (21-32); CREATININE 0.8 mg/dL (0.55-1.02); GLUCOSE,RANDOM 103 mg/dL (74-106); SGOT/AST 24 U/L (15-37); SGPT/ALT 20 U/L (12-78); TOT PROT 6.8 g/dl (6.4-8.2)
--- NOTE | 2018-01-31 12:27 | PN ---
S CIWA - CIWA Score Nausea/Vomitin-Mild Nausea/No Vomiting Muscle Tremors: 4-Moderate,w/Arms Extend Anxiety: 3 Agitation: 3 Paroxysmal Sweats: 1-Minimal Palms Moist Orientation: 0-Oriented Tacttile Disturbances: 1-Very Mild Itch/Numbness Auditory Disturbances: 0-None Visual Disturbances: 0-None Headache: 0-None Present CIWA-Ar Total Score: 13 BHS Progress Note (SOAP) Subjective: tremor sweat trouble sleep at night anxiety restlessness Objective: 01/31/18 12:26 Vital Signs Temperature 97.9 F 01/31/18 09:25 Pulse Rate 87 01/31/18 09:25 Respiratory Rate 18 01/31/18 09:25 Blood Pressure 125/90 01/31/18 09:25 O2 Sat by Pulse Oximetry (%) Laboratory Last Values WBC 4.3 K/mm3 (4.0-10.0) 01/31/18 07:00 RBC 3.27 M/mm3 (3.60-5.2) L 01/31/18 07:00 Hgb 9.5 GM/dL (10.7-15.3) L 01/31/18 07:00 Hct 29.2 % (32.4-45.2) L 01/31/18 07:00 MCV 89.4 fl (80-96) 01/31/18 07:00 MCH 29.0 pg (25.7-33.7) 01/31/18 07:00 MCHC 32.4 g/dl (32.0-36.0) 01/31/18 07:00 RDW 16.4 % (11.6-15.6) H 01/31/18 07:00 Plt Count 163 K/MM3 (134-434) D 01/31/18 07:00 MPV 8.4 fl (7.5-11.1) D 01/31/18 07:00 Sodium 144 mmol/L (136-145) 01/31/18 07:00 Potassium 3.7 mmol/L (3.5-5.1) 01/31/18 07:00 Chloride 110 mmol/L (98-107) H 01/31/18 07:00 Carbon Dioxide 25 mmol/L (21-32) 01/31/18 07:00 Anion Gap 9 (8-16) 01/31/18 07:00 BUN 13 mg/dL (7-18) 01/31/18 07:00 Creatinine 0.8 mg/dL (0.55-1.02) 01/31/18 07:00 Creat Clearance w eGFR > 60 (>60) 01/31/18 07:00 Random Glucose 103 mg/dL (74-106) 01/31/18 07:00 Calcium 8.2 mg/dL (8.5-10.1) L 01/31/18 07:00 Total Bilirubin 0.2 mg/dL (0.2-1.0) D 01/31/18 07:00 AST 24 U/L (15-37) 01/31/18 07:00 ALT 20 U/L (12-78) 01/31/18 07:00 Alkaline Phosphatase 77 U/L (45-117) 01/31/18 07:00 Total Protein 6.8 g/dl (6.4-8.2) 01/31/18 07:00 Albumin 2.8 g/dl (3.4-5.0) L 01/31/18 07:00 RPR Titer Nonreactive (NONREACTIVE) 01/31/18 07:00 lab noted Assessment: 01/31/18 12:26 withdrawal sx Plan: continue detox
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
--- NOTE | 2018-01-31 14:19 | EKG ---
Test Reason : Blood Pressure : / mmHG Vent. Rate : 070 BPM Atrial Rate : 070 BPM P-R Int : 150 ms QRS Dur : 076 ms QT Int : 390 ms P-R-T Axes : 020 011 014 degrees QTc Int : 421 ms NORMAL SINUS RHYTHM NORMAL ECG WHEN COMPARED WITH ECG OF 03-AUG-2017 02:25, NO SIGNIFICANT CHANGE WAS FOUND Confirmed by MD Aguayo Edward ([id number]) on 01/31/2018 2:18:46 PM Referred By: Confirmed By:Rivera Aguayo MD
[2018-01-31] MEDS: hydrOXYzine PAMOATE 50 MG CAPSULE (FP) PO PRN (19:57)
[2018-01-31] MEDS ORDERED: QUEtiapine FUMARATE 100 MG TABLET (FP) PO SCH (22:00)
[2018-01-31] MEDS: QUEtiapine FUMARATE 50 MG TABLET PO SCH (22:10)
[2018-01-31] MEDS: THIAMINE HCL 100 MG TABLET (FP) PO SCH (22:10)
[2018-01-31] MEDS: ATORVASTATIN CA 10 MG TABLET (FP) PO SCH (22:11)
[2018-02-01] MEDS: GABAPENTIN 300 MG CAPSULE (FP) PO SCH ×3 (06:40→22:02)
[2018-02-01] MEDS: RITONAVIR 100 MG TABLET PO SCH (07:21)
[2018-02-01] MEDS: EMTRICITABINE 200MG/TENOFOVIR 300MG PO SCH (07:21)
[2018-02-01] MEDS: DARUNAVIR ETHANOLATE 800 MG TAB PO SCH (07:21)
[2018-02-01] MEDS: ESCITALOPRAM OXALATE 20 MG TABLET (FP) PO SCH (10:15)
[2018-02-01] MEDS: PRENATAL VITAMINS W/ FOLIC ACID TABLET (FP) PO SCH (10:15)
[2018-02-01] MEDS: diazePAM 5 MG TABLET PO SCH ×2 (10:15→22:02)
[2018-02-01] MEDS: amLODIPine BESYLATE 10 MG TABLET (FP) PO SCH (10:15)
--- NOTE | 2018-02-01 10:15 | PN ---
[facility] CIWA - CIWA Score Nausea/Vomitin-Mild Nausea/No Vomiting Muscle Tremors: 4-Moderate,w/Arms Extend Anxiety: 2 Agitation: 2 Paroxysmal Sweats: 1-Minimal Palms Moist Orientation: 0-Oriented Tacttile Disturbances: 1-Very Mild Itch/Numbness Auditory Disturbances: 0-None Visual Disturbances: 0-None Headache: 0-None Present CIWA-Ar Total Score: 11 S Progress Note (SOAP) Subjective: sweat tremor trouble sleep through the night mild gi distress Objective: 02/01/18 10:14 Vital Signs Temperature 97.7 F 02/01/18 09:24 Pulse Rate 81 02/01/18 09:24 Respiratory Rate 16 02/01/18 09:24 Blood Pressure 108/70 02/01/18 09:24 O2 Sat by Pulse Oximetry (%) Laboratory Last Values WBC 4.3 K/mm3 (4.0-10.0) 01/31/18 07:00 RBC 3.27 M/mm3 (3.60-5.2) L 01/31/18 07:00 Hgb 9.5 GM/dL (10.7-15.3) L 01/31/18 07:00 Hct 29.2 % (32.4-45.2) L 01/31/18 07:00 MCV 89.4 fl (80-96) 01/31/18 07:00 MCH 29.0 pg (25.7-33.7) 01/31/18 07:00 MCHC 32.4 g/dl (32.0-36.0) 01/31/18 07:00 RDW 16.4 % (11.6-15.6) H 01/31/18 07:00 Plt Count 163 K/MM3 (134-434) D 01/31/18 07:00 MPV 8.4 fl (7.5-11.1) D 01/31/18 07:00 Sodium 144 mmol/L (136-145) 01/31/18 07:00 Potassium 3.7 mmol/L (3.5-5.1) 01/31/18 07:00 Chloride 110 mmol/L (98-107) H 01/31/18 07:00 Carbon Dioxide 25 mmol/L (21-32) 01/31/18 07:00 Anion Gap 9 (8-16) 01/31/18 07:00 BUN 13 mg/dL (7-18) 01/31/18 07:00 Creatinine 0.8 mg/dL (0.55-1.02) 01/31/18 07:00 Creat Clearance w eGFR > 60 (>60) 01/31/18 07:00 Random Glucose 103 mg/dL (74-106) 01/31/18 07:00 Calcium 8.2 mg/dL (8.5-10.1) L 01/31/18 07:00 Total Bilirubin 0.2 mg/dL (0.2-1.0) D 01/31/18 07:00 AST 24 U/L (15-37) 01/31/18 07:00 ALT 20 U/L (12-78) 01/31/18 07:00 Alkaline Phosphatase 77 U/L (45-117) 01/31/18 07:00 Total Protein 6.8 g/dl (6.4-8.2) 01/31/18 07:00 Albumin 2.8 g/dl (3.4-5.0) L 01/31/18 07:00 RPR Titer Nonreactive (NONREACTIVE) 01/31/18 07:00 lab noted Assessment: 02/01/18 10:15 withdrawal sx Plan: continue detox
[2018-02-01] MEDS: QUEtiapine FUMARATE 50 MG TABLET PO SCH (22:02)
[2018-02-01] MEDS: ATORVASTATIN CA 10 MG TABLET (FP) PO SCH (22:02)
[2018-02-01] MEDS: THIAMINE HCL 100 MG TABLET (FP) PO SCH (22:02)
[2018-02-02] MEDS: hydrOXYzine PAMOATE 50 MG CAPSULE (FP) PO PRN ×2 (01:51→22:26)
[2018-02-02] MEDS: GABAPENTIN 300 MG CAPSULE (FP) PO SCH ×3 (05:59→22:25)
[2018-02-02] MEDS: DARUNAVIR ETHANOLATE 800 MG TAB PO SCH (07:56)
[2018-02-02] MEDS: EMTRICITABINE 200MG/TENOFOVIR 300MG PO SCH (07:57)
[2018-02-02] MEDS: RITONAVIR 100 MG TABLET PO SCH (07:57)
[2018-02-02] MEDS: PRENATAL VITAMINS W/ FOLIC ACID TABLET (FP) PO SCH (10:39)
[2018-02-02] MEDS: diazePAM 5 MG TABLET PO SCH ×2 (10:40→22:25)
[2018-02-02] MEDS: ESCITALOPRAM OXALATE 20 MG TABLET (FP) PO SCH (10:40)
[2018-02-02] MEDS: amLODIPine BESYLATE 10 MG TABLET (FP) PO SCH (10:40)
--- NOTE | 2018-02-02 10:44 | PN ---
BHS Progress Note (SOAP) Subjective: feeling better no tremor social with peers in day room less sweat Objective: 02/02/18 10:43 Vital Signs Temperature 97.5 F L 02/02/18 10:20 Pulse Rate 83 02/02/18 10:20 Respiratory Rate 18 02/02/18 10:20 Blood Pressure 91/55 02/02/18 10:20 O2 Sat by Pulse Oximetry (%) Laboratory Last Values WBC 4.3 K/mm3 (4.0-10.0) 01/31/18 07:00 RBC 3.27 M/mm3 (3.60-5.2) L 01/31/18 07:00 Hgb 9.5 GM/dL (10.7-15.3) L 01/31/18 07:00 Hct 29.2 % (32.4-45.2) L 01/31/18 07:00 MCV 89.4 fl (80-96) 01/31/18 07:00 MCH 29.0 pg (25.7-33.7) 01/31/18 07:00 MCHC 32.4 g/dl (32.0-36.0) 01/31/18 07:00 RDW 16.4 % (11.6-15.6) H 01/31/18 07:00 Plt Count 163 K/MM3 (134-434) D 01/31/18 07:00 MPV 8.4 fl (7.5-11.1) D 01/31/18 07:00 Sodium 144 mmol/L (136-145) 01/31/18 07:00 Potassium 3.7 mmol/L (3.5-5.1) 01/31/18 07:00 Chloride 110 mmol/L (98-107) H 01/31/18 07:00 Carbon Dioxide 25 mmol/L (21-32) 01/31/18 07:00 Anion Gap 9 (8-16) 01/31/18 07:00 BUN 13 mg/dL (7-18) 01/31/18 07:00 Creatinine 0.8 mg/dL (0.55-1.02) 01/31/18 07:00 Creat Clearance w eGFR > 60 (>60) 01/31/18 07:00 Random Glucose 103 mg/dL (74-106) 01/31/18 07:00 Calcium 8.2 mg/dL (8.5-10.1) L 01/31/18 07:00 Total Bilirubin 0.2 mg/dL (0.2-1.0) D 01/31/18 07:00 AST 24 U/L (15-37) 01/31/18 07:00 ALT 20 U/L (12-78) 01/31/18 07:00 Alkaline Phosphatase 77 U/L (45-117) 01/31/18 07:00 Total Protein 6.8 g/dl (6.4-8.2) 01/31/18 07:00 Albumin 2.8 g/dl (3.4-5.0) L 01/31/18 07:00 RPR Titer Nonreactive (NONREACTIVE) 01/31/18 07:00 lab noted Assessment: 02/02/18 10:43 mild alcohol and benzo withdrawal sx 02/02/18 10:44 Plan: medically supervised detox
[2018-02-02] MEDS ORDERED: LIDOCAINE 5% TOPICAL PATCH TP SCH (11:00)
[2018-02-02] MEDS ORDERED: LIDOCAINE PATCH REMOVAL MC SCH (22:00)
[2018-02-02] MEDS: QUEtiapine FUMARATE 50 MG TABLET PO SCH (22:25)
[2018-02-02] MEDS: ATORVASTATIN CA 10 MG TABLET (FP) PO SCH (22:25)
[2018-02-02] MEDS: THIAMINE HCL 100 MG TABLET (FP) PO SCH (22:27)
[2018-02-03] MEDS: GABAPENTIN 300 MG CAPSULE (FP) PO SCH (05:39)
[2018-02-03 06:52] VITALS: BP 99/65; PULSE 90; TEMP 97.7
--- NOTE | 2018-02-03 08:31 | DS ---
[facility] Detox Discharge Summary Admission Date: 01/30/18 Discharge Date: 02/03/18 - History Present History: Alcohol Dependence, Cocaine Dependence Additional Comments: DETOX COMPLETED. ALERT O X 3. NAD. PT REPORTS PRIMARY CARE WITH TAMIR HODGES WITH DR VARGAS. Pertinent Past History: PLEASE SEE DX BELOW - Physical Exam Results Vital Signs: Vital Signs Temperature 97.7 F 02/03/18 06:00 Pulse Rate 90 02/03/18 06:00 Respiratory Rate 18 02/03/18 06:00 Blood Pressure 99/65 02/03/18 06:00 O2 Sat by Pulse Oximetry (%) Pertinent Admission Physical Exam Findings: WITHDRAWAL SX Laboratory Tests 01/31/18 01/31/18 01/31/18 07:00 07:00 07:00 WBC 4.3 RBC 3.27 L Hgb 9.5 L Hct 29.2 L MCV 89.4 MCH 29.0 MCHC 32.4 RDW 16.4 H Plt Count 163 D MPV 8.4 D Sodium 144 Potassium 3.7 Chloride 110 H Carbon Dioxide 25 Anion Gap 9 BUN 13 Creatinine 0.8 Creat Clearance w eGFR > 60 Random Glucose 103 Calcium 8.2 L Total Bilirubin 0.2 D AST 24 ALT 20 Alkaline Phosphatase 77 Total Protein 6.8 Albumin 2.8 L RPR Titer Nonreactive - Treatment Hospital Course: Detox Protocol Followed, Detoxed Safely, Responded well, Discharged Condition Good, Rehab Referral Accepted Patient has Accepted a Rehab Referral to: [facility] - Medication Discharge Medications: Ambulatory Orders Darunavir Ethanolate [Prezista -] 800 mg PO DAILY #30 tablet 08/12/17 Buspirone HCl [Buspar -] 5 mg PO BID 01/30/18 Emtricitabine/Tenofovir (Tdf) [Truvada 200 mg-300 mg Tablet] 1 each PO DAILY Gabapentin [Neurontin] 800 mg PO Q8H 01/30/18 Quetiapine Fumarate [Seroquel] 100 tab PO HS 01/30/18 Ritonavir [Norvir -] 100 mg PO DAILY 01/30/18 Amlodipine Besylate [Norvasc -] 10 mg PO DAILY #30 tablet 02/02/18 Atorvastatin Calcium [Lipitor] 10 mg PO HS #30 tablet 02/02/18 Escitalopram Oxalate [Lexapro -] 20 mg PO DAILY #30 tablet 02/02/18 Gabapentin [Neurontin -] 600 mg PO TID #90 capsule 02/02/18 - AMA Did Patient Leave Against Medical Advice: No
--- NOTE | 2018-02-03 09:13 | PN ---
BHS Progress Note (SOAP) Subjective: DETOX COMPLETED. ALERT O X 3. NAD. PT REFERRED TO REHAB AT [facility]. Objective: 02/03/18 09:12 Vital Signs 02/03/18 02/03/18 03:30 06:00 Temperature 97.7 F Pulse Rate 90 Respiratory 18 18 Rate Blood Pressure 99/65 Laboratory Tests 01/31/18 01/31/18 01/31/18 07:00 07:00 07:00 WBC 4.3 RBC 3.27 L Hgb 9.5 L Hct 29.2 L MCV 89.4 MCH 29.0 MCHC 32.4 RDW 16.4 H Plt Count 163 D MPV 8.4 D Sodium 144 Potassium 3.7 Chloride 110 H Carbon Dioxide 25 Anion Gap 9 BUN 13 Creatinine 0.8 Creat Clearance w eGFR > 60 Random Glucose 103 Calcium 8.2 L Total Bilirubin 0.2 D AST 24 ALT 20 Alkaline Phosphatase 77 Total Protein 6.8 Albumin 2.8 L RPR Titer Nonreactive Assessment: 02/03/18 09:12 MEDICALLY STABLE Plan: D/C PT TODAY TO REHAB AT [facility].
[2018-02-03] MEDS: DARUNAVIR ETHANOLATE 800 MG TAB PO SCH (09:23)
[2018-02-03] MEDS: EMTRICITABINE 200MG/TENOFOVIR 300MG PO SCH (09:23)
[2018-02-03] MEDS: amLODIPine BESYLATE 10 MG TABLET (FP) PO SCH (09:23)
[2018-02-03] MEDS: RITONAVIR 100 MG TABLET PO SCH (09:24)
[2018-02-03] MEDS: ESCITALOPRAM OXALATE 20 MG TABLET (FP) PO SCH (09:30)
[2018-02-03] MEDS ORDERED: diazePAM 5 MG TABLET PO SCH (10:00)
== END 2018-02-03 09:27 | disposition home or self-care (01) | DRG 774 ==
LOC: YASAS 13:06 → Y6N 15:39
PROVIDERS: ADMIT Family Medicine Addiction Medicine; ATTEND Family Medicine Addiction Medicine
PROC: HZ2ZZZZ Detoxification Services for Substance Abuse Treatment (ICD-10-PCS; principal; 2018-01-30)
DX: F10.230 Alcohol dependence with withdrawal, uncomplicated (principal); F14.20 Cocaine dependence, uncomplicated; F31.81 Bipolar II disorder; Z21 Asymptomatic human immunodeficiency virus [HIV] infection status; I10 Essential (primary) hypertension; E78.00 Pure hypercholesterolemia, unspecified; K21.9 Gastro-esophageal reflux disease without esophagitis; G62.9 Polyneuropathy, unspecified; M12.9 Arthropathy, unspecified; Z86.2 Personal history of diseases of the blood and blood-forming organs and certain disorders involving the immune mechanism; Z86.69 Personal history of other diseases of the nervous system and sense organs; R26.89 Other abnormalities of gait and mobility; Z99.89 Dependence on other enabling machines and devices; Z91.5 Personal history of self-harm
CPT/HCPCS: 36415; 80053; 85027; 86593; 93005; 93010

== ENCOUNTER 2018-04-04 10:11 | Inpatient (IN) | payer OTHER ==
[2018-04-04 10:57] VITALS: BMI 30.7
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
[2018-04-04] MEDS ORDERED: MAGNESIUM HYDROX 2400MG/30ML ORAL SUSPENSION 30 ML CUP PO PRN (13:05)
[2018-04-04] MEDS ORDERED: P-EPHED 60MG/TRIPROLIDI 2.5MG TABLET PO PRN (13:05)
[2018-04-04] MEDS ORDERED: LOPERAMIDE HCL 2 MG CAPSULE PO PRN (13:05)
[2018-04-04] MEDS ORDERED: MAGNESIUM CITRATE 300 ML BOTTLE PO PRN (13:05)
[2018-04-04] MEDS ORDERED: ACETAMINOPHEN 325 MG TABLET (FP) PO PRN (13:05)
[2018-04-04] MEDS ORDERED: MENTHOL/PHENOL 1 EACH UD MM PRN (13:05)
[2018-04-04] MEDS ORDERED: MAG HYDROX/AL HYDROX/SIMETH 30 ML UNIT-DOSE CUP PO PRN (13:05)
[2018-04-04] MEDS ORDERED: IBUPROFEN 400 MG TABLET (FP) PO PRN (13:05)
[2018-04-04] MEDS ORDERED: guaiFENesin/D-METHORPHAN HB 10 ML UNIT-DOSE CUPS PO PRN (13:05)
[2018-04-04] MEDS: chlordiazePOXIDE HCL 25 MG CAPSULE PO PRN ×2 (14:51→18:34)
[2018-04-04] MEDS: GABAPENTIN 400 MG CAPSULE (FP) PO SCH ×2 (14:51→22:38)
[2018-04-04] MEDS: amLODIPine BESYLATE 10 MG TABLET (FP) PO SCH (14:51)
[2018-04-04] MEDS: chlordiazePOXIDE HCL 25 MG CAPSULE PO SCH ×2 (18:03→22:37)
[2018-04-04 20:18] LABS: URINE APPEARANCE SLCLOUDY; URINE BILIRUBIN NEGATIVE (<2.0 mg/dL); URINE COLOR LTYELLOW; URINE GLUCOSE (UA) NEGATIVE (NEGATIVE); URINE KETONE NEGATIVE (NEGATIVE); URINE LEUK ESTERASE NEGATIVE (NEGATIVE); URINE NITRITE NEGATIVE (NEGATIVE); URINE PROTEIN NEGATIVE (NEGATIVE); URINE UROBILINOGEN NEGATIVE mg/dL (0.2-1.0)
[2018-04-04] MEDS ORDERED: MELATONIN 5 MG TABLETS PO PRN (22:00)
[2018-04-04] MEDS: THIAMINE HCL 100 MG TABLET (FP) PO SCH (22:37)
[2018-04-04] MEDS: ATORVASTATIN CA 10 MG TABLET (FP) PO SCH (22:38)
[2018-04-05] MEDS: GABAPENTIN 400 MG CAPSULE (FP) PO SCH ×3 (05:42→23:15)
[2018-04-05] MEDS: chlordiazePOXIDE HCL 25 MG CAPSULE PO SCH ×4 (05:42→23:16)
--- NOTE | 2018-04-05 07:40 | CONSULT ---
[facility] Psychiatric Consult - Data Date of interview: 04/05/18 Admission source: [facility] Identifying data: This is 52 years old female, ambulating with walker, mother of eight, living alone, on HASSA support, with psychiatric hospitalization history, with multiple medical issues, history of Alcohol and Cocaine dependence, is reporting Alcohol withdrawal symptoms and seeking for detox. Substance Abuse History: - Smoking Cessation. Smoking history: Never smoked. Have you smoked in the past 12 months: No. Aproximately how many cigarettes per day: 0. Cigars Per Day: 0. Hx Chewing Tobacco Use: No. Initiated information on smoking cessation: No. - Substance & Tx. History. Hx Alcohol Use: Yes (BEER/VODKA). Hx Substance Use: Yes (COCAINE). Substance Use Type: Alcohol, Cocaine. Hx Substance Use Treatment: Yes (LAST TX AT [facility]). - Substances Abused. Crack. Route: Smoking. Frequency: 3-6 times per week. Amount used: $100. Age of first use: 23. Date of Last Use: 04/04/18. Alcohol-beer/vodka. Route: Oral. Frequency: Daily. Amount used: 1-6 pk. Age of first use: 10. Date of Last Use: 04/04/18 Medical History: HIV+, GERD, Weight loss, R. Knee injury history, Anemia history , Hypercholesterolemia, Psychiatric History: Patient reports history of Bipolar Disorder with [facility] psychiatric admission on more thenh 20 years ago, reports history of suicidal attempt at that time, denies suicidal history since then, reports currently stable on: Seroquel 100m,g po bid. Lexaoro 20mg poqd. Buspar 5mg po bid Physical/Sexual Abuse/Trauma History: Denies Additional Comment: Seroquel 100m,g po bid. Lexaoro 20mg poqd. Buspar 5mg po bid Mental Status Exam - Mental Status Exam Alert and Oriented to: Person Cognitive Function: Fair Patient Appearance: Unkempt Mood: Sad Affect: Flat Patient Behavior: Cooperative Speech Pattern: Appropriate Voice Loudness: Mildly Soft/Quiet Thought Process: Goal Oriented Thought Disorder: Being Controlled Hallucinations: Denies Suicidal Ideation: Denies Homicidal Ideation: Denies Insight/Judgement: Fair Sleep: Difficulty falling asleep Appetite: Weight loss Muscle strength/Tone: Mild Hypotonicity Gait/Station: Deferred Additional Comments: Seroquel 100m,g po bid. Lexaoro 20mg poqd. Buspar 5mg po bid Psychiatric Findings - Problem List ([place] 1, 2,3) (1) Alcohol dependence with withdrawal Current Visit: Yes Status: Acute Qualifiers: Complication of substance-induced condition: uncomplicated Qualified Code(s ): F10.230 - Alcohol dependence with withdrawal, uncomplicated (2) Cocaine dependence, uncomplicated Current Visit: Yes Status: Acute (3) Gastroesophageal reflux disease Current Visit: Yes Status: Chronic (4) HTN (hypertension) Current Visit: Yes Status: Chronic Qualifiers: Hypertension type: essential hypertension Qualified Code(s): I10 - Essential (primary) hypertension (5) Hypercholesterolemia Current Visit: Yes Status: Chronic (6) Knock knee of right lower extremity Current Visit: Yes Status: Chronic (7) Neuropathy Current Visit: Yes Status: Chronic (8) Walker as ambulation aid Current Visit: Yes Status: Chronic (9) Anemia Current Visit: Yes Status: Suspected (10) Weight decreased Current Visit: No Status: Acute (11) Alcohol dependence Current Visit: No Status: Chronic (12) Bipolar disorder Current Visit: No Status: Chronic Qualifiers: Current bipolar episode type: depressed (13) Cocaine dependence in controlled environment Current Visit: No Status: Chronic (14) Drug-induced mood disorder Current Visit: No Status: Chronic (15) Human immunodeficiency virus infection Current Visit: No Status: Chronic
--- NOTE | 2018-04-05 09:20 | PN ---
S CIWA - CIWA Score Nausea/Vomitin Muscle Tremors: 3 Anxiety: 3 Agitation: 2 Paroxysmal Sweats: 3 Orientation: 0-Oriented Tacttile Disturbances: 2-Mild Itch/Numbness/Burn Auditory Disturbances: 0-None Visual Disturbances: 0-None Headache: 0-None Present CIWA-Ar Total Score: 15 S Progress Note (SOAP) Subjective: interrupted sleep, sweats, shakes, decreased appetite, reflux Objective: 04/05/18 09:18 Vital Signs Temperature 97.9 F 04/05/18 07:49 Pulse Rate 85 04/05/18 07:49 Respiratory Rate 18 04/05/18 07:49 Blood Pressure 117/76 04/05/18 07:49 O2 Sat by Pulse Oximetry (%) Laboratory Tests 04/04/18 19:00 Urine Color Ltyellow Urine Appearance Slcloudy Urine pH 5.0 Ur Specific [place] 1.016 Urine Protein Negative Urine Glucose (UA) Negative Urine Ketones Negative Urine Blood Negative Urine Nitrite Negative Urine Bilirubin Negative Urine Urobilinogen Negative Ur Leukocyte Esterase Negative labs pending pt aox3 ambulating with a cane + mild tremor Assessment: 04/05/18 09:18 withdrawal sx hiv gerd 04/05/18 09:19 Plan: cont detox increase fluids protonix 40mg /d ensure 180ml po bid
[2018-04-05] MEDS ORDERED: QUEtiapine FUMARATE 100 MG TABLET (FP) PO SCH (10:00)
[2018-04-05] MEDS: busPIRone HCL 5 MG TABLET PO SCH ×2 (10:55→23:16)
[2018-04-05] MEDS: PRENATAL VITAMINS W/ FOLIC ACID TABLET (FP) PO SCH (10:55)
[2018-04-05] MEDS: PANTOPRAZOLE 40 MG TABLET (FP) PO SCH (10:55)
[2018-04-05] MEDS: QUEtiapine FUMARATE 100 MG TABLET (FP) PO SCH ×2 (10:56→23:15)
[2018-04-05] MEDS: ESCITALOPRAM OXALATE 20 MG TABLET (FP) PO SCH (10:56)
[2018-04-05 10:58] LABS: HEMATOCRIT 30.6 % (32.4-45.2); HEMOGLOBIN 9.6 GM/dL (10.7-15.3); MCH 27.8 pg (25.7-33.7); MCHC 31.4 g/dl (32.0-36.0); MEAN CELL VOLUME 88.6 fl (80-96); MEAN PLT VOLUME 7.1 fl (7.5-11.1); PLATELET COUNT 309 K/MM3 (134-434); RBC 3.46 M/mm3 (3.60-5.2); RDW 16.2 % (11.6-15.6)
[2018-04-05 11:28] LABS: ALBUMIN 3.1 g/dl (3.4-5.0); ALK PHOS 239 U/L (45-117); ANION GAP 9 MMOL/L (8-16); BILIRUBIN,TOTAL 0.1 mg/dL (0.2-1.0); BLOOD UREA NITROGEN 17 mg/dL (7-18); CALCIUM 8.6 mg/dL (8.5-10.1); CHLORIDE 106 mmol/L (98-107); CO2 28 mmol/L (21-32); GLUCOSE,RANDOM 130 mg/dL (74-106); POTASSIUM 3.7 mmol/L (3.5-5.1); SGOT/AST 67 U/L (15-37); SGPT/ALT 71 U/L (12-78); SODIUM 143 mmol/L (136-145); TOT PROT 7.4 g/dl (6.4-8.2)
[2018-04-05] MEDS: amLODIPine BESYLATE 10 MG TABLET (FP) PO SCH (12:38)
[2018-04-05] MEDS: ATORVASTATIN CA 10 MG TABLET (FP) PO SCH (23:15)
[2018-04-05] MEDS: THIAMINE HCL 100 MG TABLET (FP) PO SCH (23:16)
[2018-04-06] MEDS: GABAPENTIN 400 MG CAPSULE (FP) PO SCH ×3 (06:05→22:36)
[2018-04-06] MEDS: chlordiazePOXIDE HCL 25 MG CAPSULE PO SCH ×2 (06:05→10:42)
[2018-04-06] MEDS: ESCITALOPRAM OXALATE 20 MG TABLET (FP) PO SCH (10:42)
[2018-04-06] MEDS: busPIRone HCL 5 MG TABLET PO SCH ×2 (10:42→22:36)
[2018-04-06] MEDS: QUEtiapine FUMARATE 100 MG TABLET (FP) PO SCH ×2 (10:42→22:36)
[2018-04-06] MEDS: amLODIPine BESYLATE 10 MG TABLET (FP) PO SCH (10:42)
[2018-04-06] MEDS: PANTOPRAZOLE 40 MG TABLET (FP) PO SCH (10:42)
[2018-04-06] MEDS: PRENATAL VITAMINS W/ FOLIC ACID TABLET (FP) PO SCH (10:42)
[2018-04-06] MEDS ORDERED: COLLOIDAL OATMEAL 1 BAR EACH TP PRN (15:28)
--- NOTE | 2018-04-06 15:33 | PN ---
S CIWA - CIWA Score Nausea/Vomitin-No Nausea/No Vomiting Muscle Tremors: None Anxiety: 1-Mildly Anxious Agitation: 1-Slight > Activity Paroxysmal Sweats: No Perspiration Orientation: 0-Oriented Tacttile Disturbances: 0-None Auditory Disturbances: 0-None Visual Disturbances: 0-None Headache: 0-None Present CIWA-Ar Total Score: 2 BHS Progress Note (SOAP) Subjective: pt states feeling fine- wants aveeno soap, says going to [facility] Obj: Vital Signs - 24 hr 04/05/18 04/05/18 04/06/18 17:27 22:52 00:30 Temperature 97.2 F L 98.4 F Pulse Rate 119 H 104 H Respiratory 20 19 18 Rate Blood Pressure 113/67 110/73 04/06/18 04/06/18 04/06/18 06:56 09:39 15:17 Temperature 96.1 F L 96.6 F L 98.2 F Pulse Rate 92 H 98 H 97 H Respiratory 18 16 19 Rate Blood Pressure 134/79 101/53 100/74 VS WNL Laboratory Tests 04/04/18 04/05/18 04/05/18 19:00 07:00 07:00 WBC 4.0 RBC 3.46 L Hgb 9.6 L Hct 30.6 L MCV 88.6 MCH 27.8 MCHC 31.4 L RDW 16.2 H Plt Count 309 D MPV 7.1 L D Sodium 143 Potassium 3.7 Chloride 106 Carbon Dioxide 28 Anion Gap 9 BUN 17 Creatinine 1.0 Creat Clearance w eGFR 57.78 Random Glucose 130 H Calcium 8.6 Total Bilirubin 0.1 L AST 67 H ALT 71 Alkaline Phosphatase 239 H Total Protein 7.4 Albumin 3.1 L Urine Color Ltyellow Urine Appearance Slcloudy Urine pH 5.0 Ur Specific [place] 1.016 Urine Protein Negative Urine Glucose (UA) Negative Urine Ketones Negative Urine Blood Negative Urine Nitrite Negative Urine Bilirubin Negative Urine Urobilinogen Negative Ur Leukocyte Esterase Negative RPR Titer 04/05/18 07:00 WBC RBC Hgb Hct MCV MCH MCHC RDW Plt Count MPV Sodium Potassium Chloride Carbon Dioxide Anion Gap BUN Creatinine Creat Clearance w eGFR Random Glucose Calcium Total Bilirubin AST ALT Alkaline Phosphatase Total Protein Albumin Urine Color Urine Appearance Urine pH Ur Specific [place] Urine Protein Urine Glucose (UA) Urine Ketones Urine Blood Urine Nitrite Urine Bilirubin Urine Urobilinogen Ur Leukocyte Esterase RPR Titer Nonreactive anemia increased alk PO4 Ass/plan: 52 Y/O AA/FEMALE WITH A HX OF ALCOHOL AND COCAINE DEPENDENCE her for DETOX [place].- stable, continue detox protocol, melody ordered.
--- NOTE | 2018-04-06 16:07 | EKG ---
Test Reason : Blood Pressure : / mmHG Vent. Rate : 090 BPM Atrial Rate : 090 BPM P-R Int : 136 ms QRS Dur : 078 ms QT Int : 370 ms P-R-T Axes : 044 034 033 degrees QTc Int : 452 ms NORMAL SINUS RHYTHM SEPTAL INFARCT , AGE UNDETERMINED ABNORMAL ECG WHEN COMPARED WITH ECG OF 30-JAN-2018 18:11, NO SIGNIFICANT CHANGE WAS FOUND Confirmed by Dominique Serna ([id number]) on 04/06/2018 4:07:37 PM Referred By: Confirmed By:Dominique Serna
[2018-04-06] MEDS: chlordiazePOXIDE 5 MG CAPSULE PO SCH ×2 (17:11→22:37)
[2018-04-06] MEDS: THIAMINE HCL 100 MG TABLET (FP) PO SCH (22:36)
[2018-04-06] MEDS: ATORVASTATIN CA 10 MG TABLET (FP) PO SCH (22:36)
[2018-04-07] MEDS: chlordiazePOXIDE 5 MG CAPSULE PO SCH ×2 (05:42→12:18)
[2018-04-07] MEDS: GABAPENTIN 400 MG CAPSULE (FP) PO SCH (05:42)
--- NOTE | 2018-04-07 09:27 | PN ---
BHS Progress Note (SOAP) Subjective: pt improved , wants to go to rehab Objective: 04/07/18 09:25 Vital Signs Temperature 97.9 F 04/07/18 07:32 Pulse Rate 102 H 04/07/18 07:32 Respiratory Rate 20 04/07/18 07:32 Blood Pressure 136/76 04/07/18 07:32 O2 Sat by Pulse Oximetry (%) Laboratory Tests 04/04/18 04/05/18 04/05/18 19:00 07:00 07:00 WBC 4.0 RBC 3.46 L Hgb 9.6 L Hct 30.6 L MCV 88.6 MCH 27.8 MCHC 31.4 L RDW 16.2 H Plt Count 309 D MPV 7.1 L D Sodium 143 Potassium 3.7 Chloride 106 Carbon Dioxide 28 Anion Gap 9 BUN 17 Creatinine 1.0 Creat Clearance w eGFR 57.78 Random Glucose 130 H Calcium 8.6 Total Bilirubin 0.1 L AST 67 H ALT 71 Alkaline Phosphatase 239 H Total Protein 7.4 Albumin 3.1 L Urine Color Ltyellow Urine Appearance Slcloudy Urine pH 5.0 Ur Specific [place] 1.016 Urine Protein Negative Urine Glucose (UA) Negative Urine Ketones Negative Urine Blood Negative Urine Nitrite Negative Urine Bilirubin Negative Urine Urobilinogen Negative Ur Leukocyte Esterase Negative RPR Titer 04/05/18 07:00 WBC RBC Hgb Hct MCV MCH MCHC RDW Plt Count MPV Sodium Potassium Chloride Carbon Dioxide Anion Gap BUN Creatinine Creat Clearance w eGFR Random Glucose Calcium Total Bilirubin AST ALT Alkaline Phosphatase Total Protein Albumin Urine Color Urine Appearance Urine pH Ur Specific [place] Urine Protein Urine Glucose (UA) Urine Ketones Urine Blood Urine Nitrite Urine Bilirubin Urine Urobilinogen Ur Leukocyte Esterase RPR Titer Nonreactive pt aox3 in nad abualting Assessment: 04/07/18 09:25 detox complete -pt wants to go to rehab [facility]
--- NOTE | 2018-04-07 09:37 | DS ---
[facility] Detox Discharge Summary Admission Date: 04/04/18 Discharge Date: 04/07/18 - History Present History: Alcohol Dependence, Cocaine Dependence - Physical Exam Results Vital Signs: Vital Signs Temperature 97.9 F 04/07/18 07:32 Pulse Rate 102 H 04/07/18 07:32 Respiratory Rate 20 04/07/18 07:32 Blood Pressure 136/76 04/07/18 07:32 O2 Sat by Pulse Oximetry (%) - Treatment Hospital Course: Detox Protocol Followed, Detoxed Safely, Responded well, Discharged Condition Good - Medication Discharge Medications: Ambulatory Orders Darunavir Ethanolate [Prezista -] 800 mg PO DAILY #30 tablet 08/12/17 Emtricitabine/Tenofovir (Tdf) [Truvada 200 mg-300 mg Tablet] 1 each PO DAILY Gabapentin [Neurontin] 800 mg PO Q8H 01/30/18 Quetiapine Fumarate [Seroquel] 100 tab PO HS 01/30/18 Ritonavir [Norvir -] 100 mg PO DAILY 01/30/18 Amlodipine Besylate [Norvasc -] 10 mg PO DAILY #30 tablet 02/02/18 Atorvastatin Calcium [Lipitor] 10 mg PO HS #30 tablet 02/02/18 Buspirone HCl [Buspar -] 5 mg PO BID #60 tablet 04/05/18 Escitalopram Oxalate [Lexapro -] 20 mg PO DAILY #30 tablet 04/05/18 Quetiapine Fumarate [Seroquel] 100 mg PO BID #60 tablet 04/05/18 - Diagnosis (1) Alcohol dependence with withdrawal Current Visit: Yes Status: Chronic Qualifiers: Complication of substance-induced condition: uncomplicated Qualified Code(s ): F10.230 - Alcohol dependence with withdrawal, uncomplicated (2) Cocaine dependence, uncomplicated Current Visit: Yes Status: Chronic (3) Human immunodeficiency virus infection Current Visit: No Status: Chronic - AMA Did Patient Leave Against Medical Advice: No
[2018-04-07] MEDS: QUEtiapine FUMARATE 100 MG TABLET (FP) PO SCH (10:29)
[2018-04-07] MEDS: PRENATAL VITAMINS W/ FOLIC ACID TABLET (FP) PO SCH (10:29)
[2018-04-07] MEDS: PANTOPRAZOLE 40 MG TABLET (FP) PO SCH (10:29)
[2018-04-07] MEDS: amLODIPine BESYLATE 10 MG TABLET (FP) PO SCH (10:29)
[2018-04-07] MEDS: ESCITALOPRAM OXALATE 20 MG TABLET (FP) PO SCH (10:30)
[2018-04-07] MEDS: busPIRone HCL 5 MG TABLET PO SCH (10:30)
[2018-04-07 11:26] VITALS: BP 100/71; PULSE 100; TEMP 97.2
[2018-04-07] MEDS ORDERED: chlordiazePOXIDE HCL 10 MG CAPSULE PO SCH (17:00)
== END 2018-04-07 11:36 | disposition home or self-care (01) | DRG 774 ==
LOC: YASAS 10:11 → Y6N 13:41
PROVIDERS: ADMIT Surgery; ATTEND Surgery
PROC: HZ2ZZZZ Detoxification Services for Substance Abuse Treatment (ICD-10-PCS; principal; 2018-04-04)
DX: F10.230 Alcohol dependence with withdrawal, uncomplicated (principal); F14.20 Cocaine dependence, uncomplicated; F31.9 Bipolar disorder, unspecified; F19.24 Other psychoactive substance dependence with psychoactive substance-induced mood disorder; I10 Essential (primary) hypertension; Z21 Asymptomatic human immunodeficiency virus [HIV] infection status; D64.9 Anemia, unspecified; K21.9 Gastro-esophageal reflux disease without esophagitis; E78.00 Pure hypercholesterolemia, unspecified; M21.061 Valgus deformity, not elsewhere classified, right knee; G62.9 Polyneuropathy, unspecified; R26.2 Difficulty in walking, not elsewhere classified; Z99.89 Dependence on other enabling machines and devices; Z87.898 Personal history of other specified conditions; Z91.013 Allergy to seafood; Z87.42 Personal history of other diseases of the female genital tract; Z91.5 Personal history of self-harm
CPT/HCPCS: 36415; 80053; 81003; 85027; 86593; 93005; 93010

== ENCOUNTER 2018-05-14 21:36 | Inpatient (IN) | payer OTHER ==
[2018-05-14 21:55] VITALS: BMI 30.2
[2018-05-14] MEDS ORDERED: MELATONIN 5 MG TABLETS PO PRN (22:00)
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
[2018-05-14] MEDS ORDERED: LOPERAMIDE HCL 2 MG CAPSULE PO PRN (22:37)
[2018-05-14] MEDS ORDERED: chlordiazePOXIDE HCL 25 MG CAPSULE PO PRN (22:37)
[2018-05-14] MEDS ORDERED: IBUPROFEN 400 MG TABLET (FP) PO PRN (22:37)
[2018-05-14] MEDS ORDERED: MAGNESIUM CITRATE 300 ML BOTTLE PO PRN (22:37)
[2018-05-14] MEDS ORDERED: ACETAMINOPHEN 325 MG TABLET (FP) PO PRN (22:37)
[2018-05-14] MEDS ORDERED: MAG HYDROX/AL HYDROX/SIMETH 30 ML UNIT-DOSE CUP PO PRN (22:37)
[2018-05-14] MEDS ORDERED: MENTHOL/PHENOL 1 EACH UD MM PRN (22:37)
[2018-05-14] MEDS ORDERED: MAGNESIUM HYDROX 2400MG/30ML ORAL SUSPENSION 30 ML CUP PO PRN (22:37)
[2018-05-14] MEDS ORDERED: P-EPHED 60MG/TRIPROLIDI 2.5MG TABLET PO PRN (22:37)
[2018-05-14] MEDS ORDERED: guaiFENesin/D-METHORPHAN HB 10 ML UNIT-DOSE CUPS PO PRN (22:37)
[2018-05-14] MEDS: chlordiazePOXIDE HCL 25 MG CAPSULE PO SCH (23:35)
[2018-05-15] MEDS: chlordiazePOXIDE HCL 25 MG CAPSULE PO SCH ×4 (05:27→22:24)
--- NOTE | 2018-05-15 06:06 | EKG ---
Test Reason : Blood Pressure : / mmHG Vent. Rate : 065 BPM Atrial Rate : 065 BPM P-R Int : 154 ms QRS Dur : 072 ms QT Int : 408 ms P-R-T Axes : 020 019 030 degrees QTc Int : 424 ms NORMAL SINUS RHYTHM NORMAL ECG WHEN COMPARED WITH ECG OF 04-APR-2018 14:23, CRITERIA FOR SEPTAL INFARCT ARE NO LONGER PRESENT Confirmed by TIFFANI LUGO MD ([id number]) on 05/15/2018 6:05:43 AM Referred By: Confirmed By:TIFFANI LUGO MD
[2018-05-15 10:24] LABS: HEMATOCRIT 32.6 % (32.4-45.2); HEMOGLOBIN 10.4 GM/dL (10.7-15.3); MEAN CELL VOLUME 84.6 fl (80-96); MEAN PLT VOLUME 7.6 fl (7.5-11.1); PLATELET COUNT 212 K/MM3 (134-434); RBC 3.85 M/mm3 (3.60-5.2); RDW 16.8 % (11.6-15.6); WHITE BLOOD COUNT 4.4 K/mm3 (4.0-10.0)
[2018-05-15] MEDS: amLODIPine BESYLATE 10 MG TABLET (FP) PO SCH (10:27)
[2018-05-15] MEDS: PRENATAL VITAMINS W/ FOLIC ACID TABLET (FP) PO SCH (10:28)
[2018-05-15 10:29] LABS: ALBUMIN 3.1 g/dl (3.4-5.0); ALK PHOS 102 U/L (45-117); ANION GAP 8 MMOL/L (8-16); BILIRUBIN,TOTAL 0.6 mg/dL (0.2-1); BLOOD UREA NITROGEN 21 mg/dL (7-18); CALCIUM 8.7 mg/dL (8.5-10.1); CHLORIDE 108 mmol/L (98-107); CO2 25 mmol/L (21-32); CREATININE 1.1 mg/dL (0.55-1.3); GLUCOSE,RANDOM 113 mg/dL (74-106); POTASSIUM 3.7 mmol/L (3.5-5.1); SGOT/AST 36 U/L (15-37); SGPT/ALT 29 U/L (13-61); SODIUM 141 mmol/L (136-145); TOT PROT 7.6 g/dl (6.4-8.2)
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
--- NOTE | 2018-05-15 11:56 | PN ---
S CIWA - CIWA Score Nausea/Vomitin-No Nausea/No Vomiting Muscle Tremors: 4-Moderate,w/Arms Extend Anxiety: 4-Mod. Anxious/Guarded Agitation: 4-Moderately Restless Paroxysmal Sweats: 3 Orientation: 0-Oriented Tacttile Disturbances: 0-None Auditory Disturbances: 0-None Visual Disturbances: 0-None Headache: 0-None Present CIWA-Ar Total Score: 15 BHS Progress Note (SOAP) Subjective: interrupted sleep agitation anxiety sweats body aches Objective: 05/15/18 11:54 Vital Signs Temperature 97.9 F 05/15/18 09:27 Pulse Rate 95 H 05/15/18 09:27 Respiratory Rate 18 05/15/18 09:27 Blood Pressure 123/74 05/15/18 09:27 O2 Sat by Pulse Oximetry (%) Laboratory Tests 05/15/18 05/15/18 07:30 07:30 WBC 4.4 RBC 3.85 Hgb 10.4 L Hct 32.6 MCV 84.6 MCH 27.0 MCHC 32.0 RDW 16.8 H Plt Count 212 D MPV 7.6 Sodium 141 Potassium 3.7 Chloride 108 H Carbon Dioxide 25 Anion Gap 8 BUN 21 H Creatinine 1.1 Creat Clearance w eGFR 51.76 Random Glucose 113 H Calcium 8.7 Total Bilirubin 0.6 AST 36 ALT 29 Alkaline Phosphatase 102 Total Protein 7.6 Albumin 3.1 L rest of labs pending aaox3 ambulating no acute distress Assessment: 05/15/18 11:55 withdrawal sx Plan: continue detox increase fluids labs pending
[2018-05-15] MEDS: ESCITALOPRAM OXALATE 20 MG TABLET (FP) PO SCH (13:24)
[2018-05-15] MEDS: GABAPENTIN 300 MG CAPSULE (FP) PO SCH ×2 (13:24→22:25)
[2018-05-15] MEDS ORDERED: GABAPENTIN 400 MG PO SCH (14:00)
[2018-05-15] MEDS ORDERED: QUEtiapine FUMARATE 100 MG TABLET (FP) PO SCH (22:00)
[2018-05-15] MEDS: ATORVASTATIN CA 10 MG TABLET (FP) PO SCH (22:24)
[2018-05-15] MEDS: THIAMINE HCL 100 MG TABLET (FP) PO SCH (22:25)
[2018-05-15] MEDS: QUEtiapine FUMARATE 50 MG TABLET PO SCH (22:25)
[2018-05-16] MEDS: chlordiazePOXIDE HCL 25 MG CAPSULE PO SCH ×3 (05:53→17:30)
[2018-05-16] MEDS: GABAPENTIN 300 MG CAPSULE (FP) PO SCH ×3 (05:54→22:26)
[2018-05-16] MEDS: PRENATAL VITAMINS W/ FOLIC ACID TABLET (FP) PO SCH (10:42)
[2018-05-16] MEDS: ESCITALOPRAM OXALATE 20 MG TABLET (FP) PO SCH (10:42)
[2018-05-16] MEDS: amLODIPine BESYLATE 10 MG TABLET (FP) PO SCH (10:42)
--- NOTE | 2018-05-16 12:03 | PN ---
[facility] CIWA - CIWA Score Nausea/Vomitin-No Nausea/No Vomiting Muscle Tremors: 3 Anxiety: 3 Agitation: 3 Paroxysmal Sweats: 3 Orientation: 0-Oriented Tacttile Disturbances: 0-None Auditory Disturbances: 0-None Visual Disturbances: 0-None Headache: 0-None Present CIWA-Ar Total Score: 12 S Progress Note (SOAP) Subjective: agitation anxiety sweats body aches Objective: 05/16/18 12:03 Vital Signs Temperature 98.8 F 05/16/18 09:26 Pulse Rate 106 H 05/16/18 09:26 Respiratory Rate 20 05/16/18 09:26 Blood Pressure 100/59 L 05/16/18 09:26 O2 Sat by Pulse Oximetry (%) Laboratory Tests 05/15/18 05/15/18 05/15/18 07:30 07:30 07:30 WBC 4.4 RBC 3.85 Hgb 10.4 L Hct 32.6 MCV 84.6 MCH 27.0 MCHC 32.0 RDW 16.8 H Plt Count 212 D MPV 7.6 Sodium 141 Potassium 3.7 Chloride 108 H Carbon Dioxide 25 Anion Gap 8 BUN 21 H Creatinine 1.1 Creat Clearance w eGFR 51.76 Random Glucose 113 H Calcium 8.7 Total Bilirubin 0.6 AST 36 ALT 29 Alkaline Phosphatase 102 Total Protein 7.6 Albumin 3.1 L RPR Titer Nonreactive aaox3 ambulating no acute distress u/a ordered 05/16/18 12:03 Assessment: 05/16/18 12:04 withdrawal sx Plan: continue detox increase fluids u/a ordered
[2018-05-16] MEDS: THIAMINE HCL 100 MG TABLET (FP) PO SCH (22:26)
[2018-05-16] MEDS: QUEtiapine FUMARATE 50 MG TABLET PO SCH (22:27)
[2018-05-16] MEDS: ATORVASTATIN CA 10 MG TABLET (FP) PO SCH (22:27)
[2018-05-16] MEDS: chlordiazePOXIDE 5 MG CAPSULE PO SCH (23:25)
[2018-05-17] MEDS: chlordiazePOXIDE 5 MG CAPSULE PO SCH ×2 (05:26→10:21)
[2018-05-17] MEDS: GABAPENTIN 300 MG CAPSULE (FP) PO SCH (07:13)
[2018-05-17 09:14] VITALS: BP 132/92; PULSE 95; TEMP 97.9
[2018-05-17] MEDS: amLODIPine BESYLATE 10 MG TABLET (FP) PO SCH (10:21)
[2018-05-17] MEDS: ESCITALOPRAM OXALATE 20 MG TABLET (FP) PO SCH (10:21)
[2018-05-17] MEDS: PRENATAL VITAMINS W/ FOLIC ACID TABLET (FP) PO SCH (10:22)
[2018-05-17 10:26] LABS: URINE APPEARANCE CLEAR; URINE BILIRUBIN NEGATIVE (<2.0 mg/dL); URINE COLOR LTYELLOW; URINE GLUCOSE (UA) NEGATIVE (NEGATIVE); URINE KETONE NEGATIVE (NEGATIVE); URINE NITRITE NEGATIVE (NEGATIVE); URINE PROTEIN NEGATIVE (NEGATIVE); URINE UROBILINOGEN NEGATIVE mg/dL (0.2-1.0)
[2018-05-17 10:37] LABS: URINE LEUK ESTERASE 1+ (NEGATIVE)
[2018-05-17 10:38] LABS: EPI CELLS RARE /HPF (FEW); URINE MUCUS RARE
--- NOTE | 2018-05-17 11:55 | PN ---
BHS Progress Note (SOAP) Subjective: low back pain Objective: 05/17/18 11:54 Vital Signs Temperature 97.9 F 05/17/18 09:14 Pulse Rate 95 H 05/17/18 09:14 Respiratory Rate 16 05/17/18 09:14 Blood Pressure 132/92 05/17/18 09:14 O2 Sat by Pulse Oximetry (%) aaox3 ambulating no acute distress Assessment: 05/17/18 11:54 feeling much better, no withdrawals Plan: continue detox lidocaine patch encourage motrin prn
[2018-05-17] MEDS ORDERED: LIDOCAINE 5% TOPICAL PATCH TP SCH (12:00)
--- NOTE | 2018-05-17 12:09 | PN ---
BHS Progress Note Note: pt is feeling fine for discharge today to go to rehab. no s/s of withdrawals noted.
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
[2018-05-17] MEDS ORDERED: LIDOCAINE PATCH REMOVAL MC SCH (22:00)
[2018-05-17] MEDS ORDERED: chlordiazePOXIDE HCL 10 MG CAPSULE PO SCH (23:00)
== END 2018-05-17 12:45 | disposition other institution (70) | DRG 774 ==
LOC: YASAS 21:36 → Y6N 23:07
PROC: HZ2ZZZZ Detoxification Services for Substance Abuse Treatment (ICD-10-PCS; principal; 2018-05-14)
DX: F10.230 Alcohol dependence with withdrawal, uncomplicated (principal); F14.20 Cocaine dependence, uncomplicated; F31.81 Bipolar II disorder; F32.9 Major depressive disorder, single episode, unspecified; F19.24 Other psychoactive substance dependence with psychoactive substance-induced mood disorder; I10 Essential (primary) hypertension; K59.00 Constipation, unspecified; K21.9 Gastro-esophageal reflux disease without esophagitis; Z21 Asymptomatic human immunodeficiency virus [HIV] infection status; E78.5 Hyperlipidemia, unspecified; G62.9 Polyneuropathy, unspecified; D64.9 Anemia, unspecified; M21.061 Valgus deformity, not elsewhere classified, right knee; M19.90 Unspecified osteoarthritis, unspecified site; R26.2 Difficulty in walking, not elsewhere classified; Z99.89 Dependence on other enabling machines and devices; Z91.410 Personal history of adult physical and sexual abuse; Z87.898 Personal history of other specified conditions; Z87.42 Personal history of other diseases of the female genital tract; Z91.013 Allergy to seafood; S00.83XS Contusion of other part of head, sequela; X58.XXXS Exposure to other specified factors, sequela; Z91.5 Personal history of self-harm
CPT/HCPCS: 36415; 80053; 81003; 81015; 85027; 86593; 93005; 93010

== ENCOUNTER 2018-05-17 13:51 | Inpatient (IN) | payer OTHER ==
[2018-05-17 14:20] VITALS: BMI 31.4
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
[2018-05-17] MEDS ORDERED: P-EPHED 60MG/TRIPROLIDI 2.5MG TABLET PO PRN (15:21)
[2018-05-17] MEDS ORDERED: hydrOXYzine PAMOATE 50 MG CAPSULE (FP) PO PRN (15:21)
[2018-05-17] MEDS ORDERED: IBUPROFEN 400 MG TABLET (FP) PO PRN (15:21)
[2018-05-17] MEDS ORDERED: MENTHOL/PHENOL 1 EACH UD MM PRN (15:21)
[2018-05-17] MEDS ORDERED: guaiFENesin/D-METHORPHAN HB 10 ML UNIT-DOSE CUPS PO PRN (15:21)
[2018-05-17] MEDS ORDERED: MAGNESIUM HYDROX 2400MG/30ML ORAL SUSPENSION 30 ML CUP PO PRN (15:21)
[2018-05-17] MEDS ORDERED: LOPERAMIDE HCL 2 MG CAPSULE PO PRN (15:21)
[2018-05-17] MEDS ORDERED: MAG HYDROX/AL HYDROX/SIMETH 30 ML UNIT-DOSE CUP PO PRN (15:21)
[2018-05-17] MEDS ORDERED: MAGNESIUM CITRATE 300 ML BOTTLE PO PRN (15:21)
[2018-05-17] MEDS ORDERED: ACETAMINOPHEN 325 MG TABLET (FP) PO PRN (15:21)
[2018-05-17] MEDS ORDERED: NICOTINE POLACRILEX 4 MG GUM BUC PRN (15:21)
[2018-05-17] MEDS: GABAPENTIN 300 MG CAPSULE (FP) PO SCH ×2 (15:49→21:29)
[2018-05-17] MEDS: QUEtiapine FUMARATE 50 MG TABLET PO SCH (21:28)
[2018-05-17] MEDS: ATORVASTATIN CA 10 MG TABLET (FP) PO SCH (21:28)
[2018-05-17] MEDS: busPIRone HCL 5 MG TABLET PO SCH (21:28)
[2018-05-17] MEDS: THIAMINE HCL 100 MG TABLET (FP) PO SCH (21:28)
[2018-05-17] MEDS: LIDOCAINE PATCH REMOVAL MC SCH (21:29)
[2018-05-17] MEDS ORDERED: MELATONIN 5 MG TABLETS PO PRN (22:00)
[2018-05-18] MEDS: GABAPENTIN 300 MG CAPSULE (FP) PO SCH ×3 (06:20→21:26)
[2018-05-18] MEDS: NICOTINE 21 MG/24 HOURS TOPICAL PATCH TD SCH (09:46)
[2018-05-18] MEDS: PRENATAL VITAMINS W/ FOLIC ACID TABLET (FP) PO SCH (09:47)
[2018-05-18] MEDS: QUEtiapine FUMARATE 50 MG TABLET PO SCH ×2 (09:47→21:26)
[2018-05-18] MEDS: busPIRone HCL 5 MG TABLET PO SCH ×2 (09:47→21:26)
[2018-05-18] MEDS: amLODIPine BESYLATE 10 MG TABLET (FP) PO SCH (09:47)
[2018-05-18] MEDS: LIDOCAINE 5% TOPICAL PATCH TP SCH (09:47)
[2018-05-18] MEDS: ESCITALOPRAM OXALATE 20 MG TABLET (FP) PO SCH (09:47)
--- NOTE | 2018-05-18 16:41 | HP ---
[facility] Rehab Assess/Revision - Admission History Admitted to Rehab from: [facility] Date of Admission to Rehab: 05/17/18 - Vital signs Vital Signs: Vital Signs Period Temp Pulse Resp BP Sys/Pichardo Pulse Ox Last 24 Hr 97.9 F 92-103 18-18 110-122/79-84 - Findings Detox History & Physical reviewed: Yes Concur with findings: Yes Inpatient Rehab Admission - Initial Determination Are CD services needed?: Yes Free of communicable disease: Yes Not in need of hospitalization: Yes - Rehab Admission Criteria Patient is meeting Inpatient Rehab admission criteria:: Yes
--- NOTE | 2018-05-18 16:56 | PN ---
S Progress Note Note: PT DENIES VAGINAL DISCHARGE CONTRARY TO PREVIOUS REPORT. HOWEVER PT WILL REPEAT UA TODAY DUE TO LEUK LATOSHA +1 WHILE IN DETOX ALTHOUGH NITRITE NEGATIVE. PT REPORTS HX OF PERIPHERAL NEUROPATHY AND WALKS WITH CANE SOMETIMES. PT REQUESTING FOR CANE. Vital Signs - 24 hr 05/18/18 05/18/18 05/18/18 00:30 03:30 06:31 Temperature 97.9 F Pulse Rate 92 H Respiratory 18 18 18 Rate Blood Pressure 110/79 05/18/18 09:47 Temperature Pulse Rate 103 H Respiratory Rate Blood Pressure 122/84 PLAN: OBTAIN CANE FOR PATIENT AMBULATION DIRECTED. REPEAT UA TODAY INCREASE PO FLUIDS TOLERATED.
[2018-05-18] MEDS: LIDOCAINE PATCH REMOVAL MC SCH (21:26)
[2018-05-18] MEDS: THIAMINE HCL 100 MG TABLET (FP) PO SCH (21:26)
[2018-05-18] MEDS: ATORVASTATIN CA 10 MG TABLET (FP) PO SCH (21:26)
[2018-05-19] MEDS: GABAPENTIN 300 MG CAPSULE (FP) PO SCH ×3 (06:22→21:33)
[2018-05-19] MEDS: ESCITALOPRAM OXALATE 20 MG TABLET (FP) PO SCH (10:07)
[2018-05-19] MEDS: PRENATAL VITAMINS W/ FOLIC ACID TABLET (FP) PO SCH (10:07)
[2018-05-19] MEDS: busPIRone HCL 5 MG TABLET PO SCH ×2 (10:07→21:33)
[2018-05-19] MEDS: NICOTINE 21 MG/24 HOURS TOPICAL PATCH TD SCH (10:07)
[2018-05-19] MEDS: LIDOCAINE 5% TOPICAL PATCH TP SCH (10:07)
[2018-05-19] MEDS: QUEtiapine FUMARATE 50 MG TABLET PO SCH ×2 (10:07→21:33)
[2018-05-19] MEDS: amLODIPine BESYLATE 10 MG TABLET (FP) PO SCH (10:09)
[2018-05-19 15:48] LABS: URINE APPEARANCE CLEAR; URINE BILIRUBIN NEGATIVE (<2.0 mg/dL); URINE COLOR LTYELLOW; URINE GLUCOSE (UA) NEGATIVE (NEGATIVE); URINE KETONE NEGATIVE (NEGATIVE); URINE LEUK ESTERASE 2+ (NEGATIVE); URINE NITRITE NEGATIVE (NEGATIVE); URINE PROTEIN NEGATIVE (NEGATIVE); URINE UROBILINOGEN NEGATIVE mg/dL (0.2-1.0)
[2018-05-19 16:10] LABS: EPI CELLS RARE /HPF (FEW); URINE MUCUS RARE
[2018-05-19] MEDS: THIAMINE HCL 100 MG TABLET (FP) PO SCH (21:33)
[2018-05-19] MEDS: ATORVASTATIN CA 10 MG TABLET (FP) PO SCH (21:33)
[2018-05-19] MEDS: LIDOCAINE PATCH REMOVAL MC SCH (21:34)
[2018-05-20] MEDS: GABAPENTIN 300 MG CAPSULE (FP) PO SCH ×3 (06:38→21:15)
[2018-05-20] MEDS ORDERED: QUEtiapine FUMARATE 25 MG TABLET (FP) ONE (08:06)
[2018-05-20] MEDS: NICOTINE 21 MG/24 HOURS TOPICAL PATCH TD SCH (09:49)
[2018-05-20] MEDS: busPIRone HCL 5 MG TABLET PO SCH ×2 (09:49→21:15)
[2018-05-20] MEDS: ESCITALOPRAM OXALATE 20 MG TABLET (FP) PO SCH (09:49)
[2018-05-20] MEDS: LIDOCAINE 5% TOPICAL PATCH TP SCH (09:49)
[2018-05-20] MEDS: PRENATAL VITAMINS W/ FOLIC ACID TABLET (FP) PO SCH (09:50)
[2018-05-20] MEDS: amLODIPine BESYLATE 10 MG TABLET (FP) PO SCH (09:50)
[2018-05-20] MEDS: QUEtiapine FUMARATE 50 MG TABLET PO SCH ×2 (09:51→21:16)
[2018-05-20] MEDS: THIAMINE HCL 100 MG TABLET (FP) PO SCH (21:15)
[2018-05-20] MEDS: ATORVASTATIN CA 10 MG TABLET (FP) PO SCH (21:16)
[2018-05-20] MEDS: LIDOCAINE PATCH REMOVAL MC SCH (21:16)
[2018-05-21] MEDS: GABAPENTIN 300 MG CAPSULE (FP) PO SCH ×3 (06:29→21:03)
[2018-05-21] MEDS: QUEtiapine FUMARATE 50 MG TABLET PO SCH ×2 (09:14→21:03)
[2018-05-21] MEDS: NICOTINE 21 MG/24 HOURS TOPICAL PATCH TD SCH (09:14)
[2018-05-21] MEDS: ESCITALOPRAM OXALATE 20 MG TABLET (FP) PO SCH (09:14)
[2018-05-21] MEDS: PRENATAL VITAMINS W/ FOLIC ACID TABLET (FP) PO SCH (09:14)
[2018-05-21] MEDS: amLODIPine BESYLATE 10 MG TABLET (FP) PO SCH (09:14)
[2018-05-21] MEDS: busPIRone HCL 5 MG TABLET PO SCH ×2 (09:14→21:03)
[2018-05-21] MEDS: LIDOCAINE 5% TOPICAL PATCH TP SCH (09:15)
[2018-05-21] MEDS: ATORVASTATIN CA 10 MG TABLET (FP) PO SCH (21:03)
[2018-05-21] MEDS: THIAMINE HCL 100 MG TABLET (FP) PO SCH (21:03)
[2018-05-21] MEDS: LIDOCAINE PATCH REMOVAL MC SCH (21:03)
[2018-05-22] MEDS: GABAPENTIN 300 MG CAPSULE (FP) PO SCH ×3 (06:36→21:20)
[2018-05-22] MEDS: busPIRone HCL 5 MG TABLET PO SCH ×2 (09:33→21:20)
[2018-05-22] MEDS: LIDOCAINE 5% TOPICAL PATCH TP SCH (09:33)
[2018-05-22] MEDS: amLODIPine BESYLATE 10 MG TABLET (FP) PO SCH (09:34)
[2018-05-22] MEDS: PRENATAL VITAMINS W/ FOLIC ACID TABLET (FP) PO SCH (09:34)
[2018-05-22] MEDS: ESCITALOPRAM OXALATE 20 MG TABLET (FP) PO SCH (09:34)
[2018-05-22] MEDS: QUEtiapine FUMARATE 50 MG TABLET PO SCH ×2 (09:34→21:20)
[2018-05-22] MEDS: NICOTINE 21 MG/24 HOURS TOPICAL PATCH TD SCH (09:36)
[2018-05-22] MEDS: THIAMINE HCL 100 MG TABLET (FP) PO SCH (21:20)
[2018-05-22] MEDS: ATORVASTATIN CA 10 MG TABLET (FP) PO SCH (21:20)
[2018-05-22] MEDS: LIDOCAINE PATCH REMOVAL MC SCH (21:21)
[2018-05-23] MEDS: GABAPENTIN 300 MG CAPSULE (FP) PO SCH ×3 (06:28→21:21)
[2018-05-23] MEDS: ESCITALOPRAM OXALATE 20 MG TABLET (FP) PO SCH (09:44)
[2018-05-23] MEDS: busPIRone HCL 5 MG TABLET PO SCH ×2 (09:44→21:21)
[2018-05-23] MEDS: PRENATAL VITAMINS W/ FOLIC ACID TABLET (FP) PO SCH (09:44)
[2018-05-23] MEDS: LIDOCAINE 5% TOPICAL PATCH TP SCH (09:44)
[2018-05-23] MEDS: amLODIPine BESYLATE 10 MG TABLET (FP) PO SCH (09:45)
[2018-05-23] MEDS: QUEtiapine FUMARATE 50 MG TABLET PO SCH ×2 (09:45→21:21)
--- NOTE | 2018-05-23 12:35 | PN ---
S Progress Note Note: Vital Signs Temperature 97.8 F 05/23/18 06:45 Pulse Rate 109 H 05/23/18 09:25 Respiratory Rate 18 05/23/18 06:45 Blood Pressure 128/84 05/23/18 09:25 O2 Sat by Pulse Oximetry (%) Laboratory Last Values Urine Color Ltyellow 05/19/18 11:20 Urine Appearance Clear 05/19/18 11:20 Urine pH 6.0 (5.0-8.0) 05/19/18 11:20 Ur Specific [facility] 1.015 (1.010-1.035) 05/19/18 11:20 Urine Protein Negative (NEGATIVE) 05/19/18 11:20 Urine Glucose (UA) Negative (NEGATIVE) 05/19/18 11:20 Urine Ketones Negative (NEGATIVE) 05/19/18 11:20 Urine Blood Negative (NEGATIVE) 05/19/18 11:20 Urine Nitrite Negative (NEGATIVE) 05/19/18 11:20 Urine Bilirubin Negative (<2.0 mg/dL) 05/19/18 11:20 Urine Urobilinogen Negative mg/dL (0.2-1.0) 05/19/18 11:20 Ur Leukocyte Esterase 2+ (NEGATIVE) H 05/19/18 11:20 Urine WBC (Auto) 5-10 /hpf (3-5) 05/19/18 11:20 Urine RBC (Auto) None /hpf (0-3) 05/19/18 11:20 Ur Epithelial Cells Rare /HPF (FEW) 05/19/18 11:20 Urine Mucus Rare 05/19/18 11:20 Microbiology 05/20/18 16:58 Urine Culture - Final Urine - Urine Clean Catch NO GROWTH OBTAINED Labs reviewed patient currently stable increase PO fluids continue to monitor
--- NOTE | 2018-05-23 14:27 | PN ---
[facility] Progress Note Note: met with the patient for "found cocaine in pocket" observed patient lying on bed c/p neuropathy leg pain ambulate with cane steady gait 52 years old female admitted to [facility] on 05/14/18 for alcohol withdrawal sx completed detox regimen transferred to rehab unit, patient is doing well today the staff found bag of "cocaine" in her pocket follow policy and protocol that physical examine as cardiac :mild tackycardia ap 102 "I am anxieous" patient reproted that cocaine is not her drug of choice but alcohol, "forgot" there is a bag of cocaine in the pocket S1S2 RRR urine tox + benzo patient is alert oriented x 3 lung clear bilaterally abdomen soft + BS none tender, patient is medically stable at this time encourage 3E multidisciplinary team approach to discuss the issue with the patient safety contract is necessary case will be discussed with medical assembler
[2018-05-23] MEDS: THIAMINE HCL 100 MG TABLET (FP) PO SCH (21:21)
[2018-05-23] MEDS: ATORVASTATIN CA 10 MG TABLET (FP) PO SCH (21:21)
[2018-05-23] MEDS: LIDOCAINE PATCH REMOVAL MC SCH (21:22)
[2018-05-24] MEDS: GABAPENTIN 300 MG CAPSULE (FP) PO SCH ×3 (06:30→21:24)
[2018-05-24] MEDS ORDERED: PT OWN MED DRAWER 7, Y5N ONE ×2 (08:42→09:50)
[2018-05-24] MEDS: busPIRone HCL 5 MG TABLET PO SCH ×2 (09:50→21:24)
[2018-05-24] MEDS: ESCITALOPRAM OXALATE 20 MG TABLET (FP) PO SCH (09:50)
[2018-05-24] MEDS: PRENATAL VITAMINS W/ FOLIC ACID TABLET (FP) PO SCH (09:51)
[2018-05-24] MEDS: LIDOCAINE 5% TOPICAL PATCH TP SCH (09:51)
[2018-05-24] MEDS: amLODIPine BESYLATE 10 MG TABLET (FP) PO SCH (09:51)
[2018-05-24] MEDS: QUEtiapine FUMARATE 50 MG TABLET PO SCH ×2 (09:51→21:24)
[2018-05-24] MEDS: THIAMINE HCL 100 MG TABLET (FP) PO SCH (21:23)
[2018-05-24] MEDS: ATORVASTATIN CA 10 MG TABLET (FP) PO SCH (21:24)
[2018-05-24] MEDS: LIDOCAINE PATCH REMOVAL MC SCH (21:25)
[2018-05-25] MEDS: GABAPENTIN 300 MG CAPSULE (FP) PO SCH (06:27)
[2018-05-25 06:48] VITALS: TEMP 97.9
[2018-05-25 09:19] VITALS: BP 129/88; PULSE 94
[2018-05-25] MEDS: amLODIPine BESYLATE 10 MG TABLET (FP) PO SCH (09:42)
[2018-05-25] MEDS: PRENATAL VITAMINS W/ FOLIC ACID TABLET (FP) PO SCH (09:42)
[2018-05-25] MEDS: ESCITALOPRAM OXALATE 20 MG TABLET (FP) PO SCH (09:42)
[2018-05-25] MEDS: busPIRone HCL 5 MG TABLET PO SCH (09:43)
[2018-05-25] MEDS: LIDOCAINE 5% TOPICAL PATCH TP SCH (09:43)
[2018-05-25] MEDS: QUEtiapine FUMARATE 50 MG TABLET PO SCH (09:43)
== END 2018-05-25 10:15 | disposition home or self-care (01) | DRG 772 ==
LOC: YASAS 13:51 → Y3E 13:52
PROVIDERS: ADMIT Psychiatry & Neurology Psychiatry; ATTEND Psychiatry & Neurology Psychiatry
PROC: HZ42ZZZ Group Counseling for Substance Abuse Treatment, Cognitive-Behavioral (ICD-10-PCS; principal; 2018-05-17)
DX: F10.20 Alcohol dependence, uncomplicated (principal); F14.20 Cocaine dependence, uncomplicated; F19.24 Other psychoactive substance dependence with psychoactive substance-induced mood disorder; F31.81 Bipolar II disorder; I10 Essential (primary) hypertension; Z21 Asymptomatic human immunodeficiency virus [HIV] infection status; E78.00 Pure hypercholesterolemia, unspecified; G62.9 Polyneuropathy, unspecified; M19.90 Unspecified osteoarthritis, unspecified site; D64.9 Anemia, unspecified; K21.9 Gastro-esophageal reflux disease without esophagitis; Z91.5 Personal history of self-harm
CPT/HCPCS: 81003; 81015; 87086

== ENCOUNTER 2018-07-15 22:07 | Inpatient (IN) | payer OTHER ==
[~2018-07-15 22:07] MED LIST: MELATONIN 5 MG TABLETS PO PRN
[2018-07-15 22:21] VITALS: BMI 31.4
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
[2018-07-15] MEDS ORDERED: MENTHOL/PHENOL 1 EACH UD MM PRN (23:07)
[2018-07-15] MEDS ORDERED: MAGNESIUM CITRATE 300 ML BOTTLE PO PRN (23:07)
[2018-07-15] MEDS ORDERED: ACETAMINOPHEN 325 MG TABLET (FP) PO PRN (23:07)
[2018-07-15] MEDS ORDERED: guaiFENesin/D-METHORPHAN HB 10 ML UNIT-DOSE CUPS PO PRN (23:07)
[2018-07-15] MEDS ORDERED: chlordiazePOXIDE HCL 25 MG CAPSULE PO PRN (23:07)
[2018-07-15] MEDS ORDERED: hydrOXYzine PAMOATE 50 MG CAPSULE (FP) PO PRN (23:07)
[2018-07-15] MEDS ORDERED: MAGNESIUM HYDROX 2400MG/30ML ORAL SUSPENSION 30 ML CUP PO PRN (23:07)
[2018-07-15] MEDS ORDERED: P-EPHED 60MG/TRIPROLIDI 2.5MG TABLET PO PRN (23:07)
[2018-07-15] MEDS ORDERED: MAG HYDROX/AL HYDROX/SIMETH 30 ML UNIT-DOSE CUP PO PRN (23:07)
[2018-07-15] MEDS: chlordiazePOXIDE HCL 25 MG CAPSULE PO SCH (23:25)
[2018-07-15] MEDS: GABAPENTIN 300 MG CAPSULE (FP) PO SCH (23:25)
[2018-07-16 02:18] LABS: URINE APPEARANCE CLEAR; URINE BILIRUBIN NEGATIVE (<2.0 mg/dL); URINE COLOR YELLOW; URINE GLUCOSE (UA) NEGATIVE (NEGATIVE); URINE KETONE TRACE (NEGATIVE); URINE LEUK ESTERASE 2+ (NEGATIVE); URINE NITRITE NEGATIVE (NEGATIVE); URINE PROTEIN 1+ (NEGATIVE); URINE UROBILINOGEN NEGATIVE mg/dL (0.2-1.0)
[2018-07-16 02:27] LABS: EPI CELLS RARE /HPF (FEW); URINE MUCUS RARE
[2018-07-16] MEDS: chlordiazePOXIDE HCL 25 MG CAPSULE PO SCH ×4 (05:16→22:27)
[2018-07-16] MEDS: GABAPENTIN 300 MG CAPSULE (FP) PO SCH ×3 (05:17→22:26)
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
[2018-07-16] MEDS ORDERED: EMTRICITABINE 200MG/TENOFOVIR 300MG PO SCH (10:00)
[2018-07-16] MEDS ORDERED: DARUNAVIR ETHANOLATE 800 MG TAB PO SCH (10:00)
[2018-07-16] MEDS ORDERED: RITONAVIR 100 MG TABLET PO SCH (10:00)
[2018-07-16] MEDS: amLODIPine BESYLATE 10 MG TABLET (FP) PO SCH (10:19)
[2018-07-16] MEDS: PANTOPRAZOLE 40 MG TABLET (FP) PO SCH (10:19)
[2018-07-16] MEDS: PRENATAL VITAMINS W/ FOLIC ACID TABLET (FP) PO SCH (10:20)
[2018-07-16 10:41] LABS: HEMATOCRIT 33.6 % (32.4-45.2); HEMOGLOBIN 10.6 GM/dL (10.7-15.3); MCH 26.7 pg (25.7-33.7); MCHC 31.5 g/dl (32.0-36.0); MEAN CELL VOLUME 84.9 fl (80-96); MEAN PLT VOLUME 7.5 fl (7.5-11.1); PLATELET COUNT 284 K/MM3 (134-434); RBC 3.96 M/mm3 (3.60-5.2); RDW 16.6 % (11.6-15.6); WHITE BLOOD COUNT 4.9 K/mm3 (4.0-10.0)
[2018-07-16] MEDS: busPIRone HCL 10 MG TABLET (FP) PO SCH ×2 (10:43→22:27)
[2018-07-16] MEDS: ESCITALOPRAM OXALATE 20 MG TABLET (FP) PO SCH (10:43)
[2018-07-16] MEDS: QUEtiapine FUMARATE 50 MG TABLET PO SCH (10:43)
[2018-07-16 10:57] LABS: ALK PHOS 102 U/L (45-117); ANION GAP 10 MMOL/L (8-16); BILIRUBIN,TOTAL 0.4 mg/dL (0.2-1); BLOOD UREA NITROGEN 22 mg/dL (7-18); CALCIUM 7.9 mg/dL (8.5-10.1); CHLORIDE 105 mmol/L (98-107); CO2 26 mmol/L (21-32); CREATININE 1.1 mg/dL (0.55-1.3); GLUCOSE,RANDOM 132 mg/dL (74-106); POTASSIUM 3.2 mmol/L (3.5-5.1); SGOT/AST 28 U/L (15-37); SGPT/ALT 22 U/L (13-61); SODIUM 140 mmol/L (136-145); TOT PROT 7.3 g/dl (6.4-8.2)
[2018-07-16] MEDS: LOPERAMIDE HCL 2 MG CAPSULE PO PRN (15:12)
--- NOTE | 2018-07-16 17:24 | PN ---
S CIWA - CIWA Score Nausea/Vomitin Muscle Tremors: 4-Moderate,w/Arms Extend Anxiety: 4-Mod. Anxious/Guarded Agitation: 4-Moderately Restless Paroxysmal Sweats: 3 Orientation: 0-Oriented Tacttile Disturbances: 1-Very Mild Itch/Numbness Auditory Disturbances: 0-None Visual Disturbances: 0-None Headache: 0-None Present CIWA-Ar Total Score: 18 B[facility] Progress Note (SOAP) Subjective: Loose stool, tremor, chills, sweating, poor appetite, interrupted sleep, anxious Objective: 07/16/18 17:19 Last Vital Signs Temp Pulse Resp BP Pulse Ox 98.1 F 104 H 10 121/79 07/16/18 17:16 07/16/18 17:16 07/16/18 17:16 07/16/18 17:16 Laboratory Tests 07/16/18 07/16/18 07/16/18 01:00 07:10 07:10 WBC 4.9 RBC 3.96 Hgb 10.6 L Hct 33.6 MCV 84.9 MCH 26.7 MCHC 31.5 L RDW 16.6 H Plt Count 284 D MPV 7.5 Sodium 140 Potassium 3.2 L Chloride 105 Carbon Dioxide 26 Anion Gap 10 BUN 22 H Creatinine 1.1 Creat Clearance w eGFR 51.76 Random Glucose 132 H Calcium 7.9 L Total Bilirubin 0.4 AST 28 ALT 22 Alkaline Phosphatase 102 Total Protein 7.3 Albumin 3.0 L Urine Color Yellow Urine Appearance Clear Urine pH 6.0 Ur Specific [place] 1.023 Urine Protein 1+ H Urine Glucose (UA) Negative Urine Ketones Trace H Urine Blood Negative Urine Nitrite Negative Urine Bilirubin Negative Urine Urobilinogen Negative Ur Leukocyte Esterase 2+ H Urine WBC (Auto) 25 Urine RBC (Auto) 1 Ur Epithelial Cells Rare Urine Mucus Rare RPR Titer 07/16/18 07:10 WBC RBC Hgb Hct MCV MCH MCHC RDW Plt Count MPV Sodium Potassium Chloride Carbon Dioxide Anion Gap BUN Creatinine Creat Clearance w eGFR Random Glucose Calcium Total Bilirubin AST ALT Alkaline Phosphatase Total Protein Albumin Urine Color Urine Appearance Urine pH Ur Specific [place] Urine Protein Urine Glucose (UA) Urine Ketones Urine Blood Urine Nitrite Urine Bilirubin Urine Urobilinogen Ur Leukocyte Esterase Urine WBC (Auto) Urine RBC (Auto) Ur Epithelial Cells Urine Mucus RPR Titer Nonreactive Labs reviewed: K 3.2, BERNARDA noted, glucose 132, Ca 7.9, abnormal UA Assessment: 07/16/18 17:21 Withdrawal symptoms Noted with hypokalemia, BERNARDA, hyperglycemia, hypocalcemia and abnormal UA Plan: Continue detox Hypokalemia: K Dur 40 Meq PO x 2 doses (at least 4 hrs apart), repeat serum K level in AM BERNARDA: encouraged to drink more water, repeat BMP Hyperglycemia: repeat fasting glucose Hypocalcemia: start calcium carbonate 650mg PO bid Abnormal UA: encouraged PO water intake, repeat UA
[2018-07-16] MEDS ORDERED: POTASSIUM CHLORIDE TABS 20 MEQ TABLET.ER (FP) PO ONE ×2 (17:26→22:00)
[2018-07-16] MEDS: EMTRICITABINE 200MG/TENOFOVIR 300MG PO SCH (19:05)
[2018-07-16] MEDS: RITONAVIR 100 MG TABLET PO SCH (19:05)
[2018-07-16] MEDS: QUEtiapine FUMARATE 100 MG TABLET (FP) PO SCH (22:25)
[2018-07-16] MEDS: ATORVASTATIN CA 10 MG TABLET (FP) PO SCH (22:26)
[2018-07-16] MEDS: THIAMINE HCL 100 MG TABLET (FP) PO SCH (22:26)
[2018-07-16] MEDS: CALCIUM CARBONATE 650 MG TABLET PO SCH (22:26)
[2018-07-16] MEDS: DARUNAVIR ETHANOLATE 800 MG TAB PO SCH (22:40)
[2018-07-17] MEDS: GABAPENTIN 300 MG CAPSULE (FP) PO SCH ×3 (06:08→22:21)
[2018-07-17] MEDS: chlordiazePOXIDE HCL 25 MG CAPSULE PO SCH ×3 (06:08→17:30)
[2018-07-17] MEDS: amLODIPine BESYLATE 10 MG TABLET (FP) PO SCH (10:13)
[2018-07-17] MEDS: busPIRone HCL 10 MG TABLET (FP) PO SCH ×2 (10:13→22:21)
[2018-07-17] MEDS: PANTOPRAZOLE 40 MG TABLET (FP) PO SCH (10:13)
[2018-07-17] MEDS: PRENATAL VITAMINS W/ FOLIC ACID TABLET (FP) PO SCH (10:13)
[2018-07-17] MEDS: ESCITALOPRAM OXALATE 20 MG TABLET (FP) PO SCH (10:13)
[2018-07-17] MEDS: RITONAVIR 100 MG TABLET PO SCH (10:14)
[2018-07-17] MEDS: CALCIUM CARBONATE 650 MG TABLET PO SCH ×2 (10:14→22:22)
[2018-07-17] MEDS: QUEtiapine FUMARATE 50 MG TABLET PO SCH (10:15)
[2018-07-17] MEDS: EMTRICITABINE 200MG/TENOFOVIR 300MG PO SCH (10:16)
[2018-07-17] MEDS: LOPERAMIDE HCL 2 MG CAPSULE PO PRN ×2 (10:20→22:23)
[2018-07-17 10:26] LABS: ANION GAP 5 MMOL/L (8-16); BLOOD UREA NITROGEN 20 mg/dL (7-18); CALCIUM 8.2 mg/dL (8.5-10.1); CHLORIDE 112 mmol/L (98-107); CO2 27 mmol/L (21-32); CREATININE 0.9 mg/dL (0.55-1.3); GLUCOSE,RANDOM 97 mg/dL (74-106); POTASSIUM 4.5 mmol/L (3.5-5.1); SODIUM 145 mmol/L (136-145)
[2018-07-17] MEDS: DARUNAVIR ETHANOLATE 800 MG TAB PO SCH (11:14)
[2018-07-17] MEDS: DARUNAVIR ETHANOLATE 800 MG PO SCH (12:08)
--- NOTE | 2018-07-17 14:40 | PN ---
[facility] CIWA - CIWA Score Nausea/Vomitin Muscle Tremors: 3 Anxiety: 3 Agitation: 3 Paroxysmal Sweats: 3 Orientation: 0-Oriented Tacttile Disturbances: 0-None Auditory Disturbances: 0-None Visual Disturbances: 0-None Headache: 0-None Present CIWA-Ar Total Score: 14 S Progress Note (SOAP) Subjective: sleepless diarrhea sweats sore to buttock area s/p diarrhea Objective: 07/17/18 14:42 A & O x 3 gait steady Vital Signs Temperature 96.6 F L 07/17/18 13:21 Pulse Rate 87 07/17/18 13:21 Respiratory Rate 18 07/17/18 13:21 Blood Pressure 99/66 07/17/18 13:21 O2 Sat by Pulse Oximetry (%) Laboratory Last Values WBC 4.9 K/mm3 (4.0-10.0) 07/16/18 07:10 RBC 3.96 M/mm3 (3.60-5.2) 07/16/18 07:10 Hgb 10.6 GM/dL (10.7-15.3) L 07/16/18 07:10 Hct 33.6 % (32.4-45.2) 07/16/18 07:10 MCV 84.9 fl (80-96) 07/16/18 07:10 MCH 26.7 pg (25.7-33.7) 07/16/18 07:10 MCHC 31.5 g/dl (32.0-36.0) L 07/16/18 07:10 RDW 16.6 % (11.6-15.6) H 07/16/18 07:10 Plt Count 284 K/MM3 (134-434) D 07/16/18 07:10 MPV 7.5 fl (7.5-11.1) 07/16/18 07:10 Sodium 145 mmol/L (136-145) 07/17/18 06:30 Potassium 4.5 mmol/L (3.5-5.1) 07/17/18 06:30 Chloride 112 mmol/L (98-107) H 07/17/18 06:30 Carbon Dioxide 27 mmol/L (21-32) 07/17/18 06:30 Anion Gap 5 MMOL/L (8-16) L 07/17/18 06:30 BUN 20 mg/dL (7-18) H 07/17/18 06:30 Creatinine 0.9 mg/dL (0.55-1.3) 07/17/18 06:30 Creat Clearance w eGFR > 60 (>60) 07/17/18 06:30 Random Glucose 97 mg/dL (74-106) 07/17/18 06:30 Calcium 8.2 mg/dL (8.5-10.1) L 07/17/18 06:30 Total Bilirubin 0.4 mg/dL (0.2-1) 07/16/18 07:10 AST 28 U/L (15-37) 07/16/18 07:10 ALT 22 U/L (13-61) 07/16/18 07:10 Alkaline Phosphatase 102 U/L (45-117) 07/16/18 07:10 Total Protein 7.3 g/dl (6.4-8.2) 07/16/18 07:10 Albumin 3.0 g/dl (3.4-5.0) L 07/16/18 07:10 Urine Color Yellow 07/16/18 01:00 Urine Appearance Clear 07/16/18 01:00 Urine pH 6.0 (5.0-8.0) 07/16/18 01:00 Ur Specific [place] 1.023 (1.010-1.035) 07/16/18 01:00 Urine Protein 1+ (NEGATIVE) H 07/16/18 01:00 Urine Glucose (UA) Negative (NEGATIVE) 07/16/18 01:00 Urine Ketones Trace (NEGATIVE) H 07/16/18 01:00 Urine Blood Negative (NEGATIVE) 07/16/18 01:00 Urine Nitrite Negative (NEGATIVE) 07/16/18 01:00 Urine Bilirubin Negative (<2.0 mg/dL) 07/16/18 01:00 Urine Urobilinogen Negative mg/dL (0.2-1.0) 07/16/18 01:00 Ur Leukocyte Esterase 2+ (NEGATIVE) H 07/16/18 01:00 Urine WBC (Auto) 25 /hpf (3-5) 07/16/18 01:00 Urine RBC (Auto) 1 /hpf (0-3) 07/16/18 01:00 Ur Epithelial Cells Rare /HPF (FEW) 07/16/18 01:00 Urine Mucus Rare 07/16/18 01:00 RPR Titer Nonreactive (NONREACTIVE) 07/16/18 07:10 Abnormal urine result Assessment: 07/17/18 15:13 withdrawal sx Plan: continue detox bacitracin for buttock area lomotil for diarrhea
[2018-07-17] MEDS: BACITRACIN 0.9 GM PACKET TP SCH (22:20)
[2018-07-17] MEDS: chlordiazePOXIDE 5 MG CAPSULE PO SCH (22:21)
[2018-07-17] MEDS: THIAMINE HCL 100 MG TABLET (FP) PO SCH (22:21)
[2018-07-17] MEDS: ATORVASTATIN CA 10 MG TABLET (FP) PO SCH (22:21)
[2018-07-17] MEDS: QUEtiapine FUMARATE 100 MG TABLET (FP) PO SCH (22:21)
[2018-07-18] MEDS: chlordiazePOXIDE 5 MG CAPSULE PO SCH ×3 (05:51→17:14)
[2018-07-18] MEDS: GABAPENTIN 300 MG CAPSULE (FP) PO SCH ×3 (05:51→22:16)
[2018-07-18] MEDS: IBUPROFEN 400 MG TABLET (FP) PO PRN ×2 (05:53→18:31)
[2018-07-18] MEDS: [UNRECOGNIZED DRUG - OTHER] PO SCH (07:10)
[2018-07-18] MEDS: EMTRICITABINE PO SCH (07:10)
[2018-07-18] MEDS: RITONAVIR 100 MG TABLET PO SCH (07:11)
[2018-07-18] MEDS: DARUNAVIR ETHANOLATE 800 MG PO SCH (07:12)
[2018-07-18] MEDS: CALCIUM CARBONATE 650 MG TABLET PO SCH ×2 (11:08→22:15)
[2018-07-18] MEDS: busPIRone HCL 10 MG TABLET (FP) PO SCH ×2 (11:08→22:16)
[2018-07-18] MEDS: ESCITALOPRAM OXALATE 20 MG TABLET (FP) PO SCH (11:08)
[2018-07-18] MEDS: PRENATAL VITAMINS W/ FOLIC ACID TABLET (FP) PO SCH (11:09)
[2018-07-18] MEDS: QUEtiapine FUMARATE 50 MG TABLET PO SCH (11:09)
[2018-07-18] MEDS: PANTOPRAZOLE 40 MG TABLET (FP) PO SCH (11:09)
[2018-07-18] MEDS: LOPERAMIDE HCL 2 MG CAPSULE PO PRN (13:36)
[2018-07-18] MEDS: BACITRACIN 0.9 GM PACKET TP SCH ×2 (13:39→22:16)
--- NOTE | 2018-07-18 15:33 | PN ---
S Progress Note (SOAP) Subjective: Sweating, vomiting, diarrhea, interrupted sleep, feeling dizzy (b/p was 81/58, stated she doesn't drink water; after much encouragement to drink water, bp increased to 97/67 and patient felt better) Objective: 07/18/18 15:25 Last Vital Signs Temp Pulse Resp BP Pulse Ox 96.5 F L 104 H 18 110/85 07/18/18 13:00 07/18/18 13:40 07/18/18 13:00 07/18/18 13:40 Laboratory Tests 07/16/18 07/16/18 07/16/18 01:00 07:10 07:10 WBC 4.9 RBC 3.96 Hgb 10.6 L Hct 33.6 MCV 84.9 MCH 26.7 MCHC 31.5 L RDW 16.6 H Plt Count 284 D MPV 7.5 Sodium 140 Potassium 3.2 L Chloride 105 Carbon Dioxide 26 Anion Gap 10 BUN 22 H Creatinine 1.1 Creat Clearance w eGFR 51.76 Random Glucose 132 H Calcium 7.9 L Total Bilirubin 0.4 AST 28 ALT 22 Alkaline Phosphatase 102 Total Protein 7.3 Albumin 3.0 L Urine Color Yellow Urine Appearance Clear Urine pH 6.0 Ur Specific [place] 1.023 Urine Protein 1+ H Urine Glucose (UA) Negative Urine Ketones Trace H Urine Blood Negative Urine Nitrite Negative Urine Bilirubin Negative Urine Urobilinogen Negative Ur Leukocyte Esterase 2+ H Urine WBC (Auto) 25 Urine RBC (Auto) 1 Ur Epithelial Cells Rare Urine Mucus Rare RPR Titer 07/16/18 07/17/18 07:10 06:30 WBC RBC Hgb Hct MCV MCH MCHC RDW Plt Count MPV Sodium 145 Potassium 4.5 Chloride 112 H Carbon Dioxide 27 Anion Gap 5 L BUN 20 H Creatinine 0.9 Creat Clearance w eGFR > 60 Random Glucose 97 Calcium 8.2 L Total Bilirubin AST ALT Alkaline Phosphatase Total Protein Albumin Urine Color Urine Appearance Urine pH Ur Specific [place] Urine Protein Urine Glucose (UA) Urine Ketones Urine Blood Urine Nitrite Urine Bilirubin Urine Urobilinogen Ur Leukocyte Esterase Urine WBC (Auto) Urine RBC (Auto) Ur Epithelial Cells Urine Mucus RPR Titer Nonreactive Labs reviewed: bun 20, calcium 8.2 (was 7.9), abnormal UA Assessment: 07/18/18 15:26 Withdrawal symptoms Noted with hypotension, azotemia, mild hypocalcemia and abnormal UA Plan: Continue detox Hypotension: initially symptomatic, encouraged to drink more water for hydration , d/c norvasc 10mg, continue to monitor vital signs Azotemia: encouraged PO water intake Mild hypocalcemia: improving, continue calcium supplement Abnormal UA: encouraged PO water intake, repeat UA ordered (was not done), UA reordered stat
--- NOTE | 2018-07-18 17:42 | PN ---
[facility] Progress Note Note: Psychiatry Attending's note (delayed) : Endorsed to me, by nurse Martita Chart reviewed. Medications revisited. Patient is examined at bedside. Gait observed. Ms Montes reports feeling much better. Ambulated in hallway in company of MD. Unassisted. Steady. Alert and fully oriented. Patient reports heavy drowsiness in the morning. No longer wants AM dose of seroquel. " That's too much ". Reassured by this automobile and property underwriter. Side effects discussed with the patient. Benefits also reviewed. Impression : Improved level of alertness. Ambulatory patient. Steadier gait. Needs cane (uses one at home). Hold seroquel tonight and observe. Discontinue seroquel 50 mg AM. Improved vitals. Re-evaluation in the morning.
--- NOTE | 2018-07-18 18:42 | PN ---
[facility] Progress Note Note: pt requesting a cane- going home tomorrow. States had been asking for it since admission
[2018-07-18 21:12] LABS: URINE APPEARANCE CLEAR; URINE BILIRUBIN NEGATIVE (<2.0 mg/dL); URINE COLOR STRAW; URINE GLUCOSE (UA) NEGATIVE (NEGATIVE); URINE KETONE NEGATIVE (NEGATIVE); URINE LEUK ESTERASE TRACE (NEGATIVE); URINE NITRITE NEGATIVE (NEGATIVE); URINE PROTEIN NEGATIVE (NEGATIVE); URINE UROBILINOGEN NEGATIVE mg/dL (0.2-1.0)
[2018-07-18 21:17] LABS: EPI CELLS RARE /HPF (FEW); URINE BACTERIA RARE /hpf (NONE SEEN); URINE HYALINE CAST 1 /lpf; URINE MUCUS RARE
[2018-07-18] MEDS: THIAMINE HCL 100 MG TABLET (FP) PO SCH (22:15)
[2018-07-18] MEDS: chlordiazePOXIDE HCL 10 MG CAPSULE PO SCH (22:16)
[2018-07-18] MEDS: ATORVASTATIN CA 10 MG TABLET (FP) PO SCH (22:16)
[2018-07-19] MEDS: IBUPROFEN 400 MG TABLET (FP) PO PRN (05:46)
[2018-07-19] MEDS: chlordiazePOXIDE HCL 10 MG CAPSULE PO SCH (05:46)
[2018-07-19] MEDS: GABAPENTIN 300 MG CAPSULE (FP) PO SCH (05:50)
[2018-07-19] MEDS: EMTRICITABINE PO SCH (07:25)
[2018-07-19] MEDS: DARUNAVIR ETHANOLATE 800 MG PO SCH (07:25)
[2018-07-19] MEDS: [UNRECOGNIZED DRUG - OTHER] PO SCH (07:25)
[2018-07-19] MEDS: RITONAVIR 100 MG TABLET PO SCH (07:26)
[2018-07-19 09:21] VITALS: BP 95/59; PULSE 97
[2018-07-19 10:15] VITALS: TEMP 98.2
--- NOTE | 2018-07-19 10:16 | DS ---
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 continue path toward sobriety - Physical Exam Results Vital Signs: Vital Signs Temperature 98.2 F 07/19/18 10:15 Pulse Rate 97 H 07/19/18 09:20 Respiratory Rate 20 07/19/18 09:20 Blood Pressure 95/59 L 07/19/18 09:20 O2 Sat by Pulse Oximetry (%) Pertinent Admission Physical Exam Findings: alcohol withdrawal sx Vital Signs Temperature 98.2 F 07/19/18 10:15 Pulse Rate 97 H 07/19/18 09:20 Respiratory Rate 20 07/19/18 09:20 Blood Pressure 95/59 L 07/19/18 09:20 O2 Sat by Pulse Oximetry (%) Laboratory Last Values WBC 4.9 K/mm3 (4.0-10.0) 07/16/18 07:10 RBC 3.96 M/mm3 (3.60-5.2) 07/16/18 07:10 Hgb 10.6 GM/dL (10.7-15.3) L 07/16/18 07:10 Hct 33.6 % (32.4-45.2) 07/16/18 07:10 MCV 84.9 fl (80-96) 07/16/18 07:10 MCH 26.7 pg (25.7-33.7) 07/16/18 07:10 MCHC 31.5 g/dl (32.0-36.0) L 07/16/18 07:10 RDW 16.6 % (11.6-15.6) H 07/16/18 07:10 Plt Count 284 K/MM3 (134-434) D 07/16/18 07:10 MPV 7.5 fl (7.5-11.1) 07/16/18 07:10 Sodium 145 mmol/L (136-145) 07/17/18 06:30 Potassium 4.5 mmol/L (3.5-5.1) 07/17/18 06:30 Chloride 112 mmol/L (98-107) H 07/17/18 06:30 Carbon Dioxide 27 mmol/L (21-32) 07/17/18 06:30 Anion Gap 5 MMOL/L (8-16) L 07/17/18 06:30 BUN 20 mg/dL (7-18) H 07/17/18 06:30 Creatinine 0.9 mg/dL (0.55-1.3) 07/17/18 06:30 Creat Clearance w eGFR > 60 (>60) 07/17/18 06:30 Random Glucose 97 mg/dL (74-106) 07/17/18 06:30 Calcium 8.2 mg/dL (8.5-10.1) L 07/17/18 06:30 Total Bilirubin 0.4 mg/dL (0.2-1) 07/16/18 07:10 AST 28 U/L (15-37) 07/16/18 07:10 ALT 22 U/L (13-61) 07/16/18 07:10 Alkaline Phosphatase 102 U/L (45-117) 07/16/18 07:10 Total Protein 7.3 g/dl (6.4-8.2) 07/16/18 07:10 Albumin 3.0 g/dl (3.4-5.0) L 07/16/18 07:10 Urine Color Straw 07/18/18 15:07 Urine Appearance Clear 07/18/18 15:07 Urine pH 5.0 (5.0-8.0) 07/18/18 15:07 Ur Specific [place] 1.009 (1.010-1.035) L 07/18/18 15:07 Urine Protein Negative (NEGATIVE) 07/18/18 15:07 Urine Glucose (UA) Negative (NEGATIVE) 07/18/18 15:07 Urine Ketones Negative (NEGATIVE) 07/18/18 15:07 Urine Blood Negative (NEGATIVE) 07/18/18 15:07 Urine Nitrite Negative (NEGATIVE) 07/18/18 15:07 Urine Bilirubin Negative (<2.0 mg/dL) 07/18/18 15:07 Urine Urobilinogen Negative mg/dL (0.2-1.0) 07/18/18 15:07 Ur Leukocyte Esterase Trace (NEGATIVE) 07/18/18 15:07 Urine WBC (Auto) 2 /hpf (3-5) 07/18/18 15:07 Urine RBC (Auto) 1 /hpf (0-3) 07/18/18 15:07 Ur Epithelial Cells Rare /HPF (FEW) 07/18/18 15:07 Urine Bacteria Rare /hpf (NONE SEEN) 07/18/18 15:07 Hyaline Casts 1 /lpf 07/18/18 15:07 Urine Mucus Rare 07/18/18 15:07 RPR Titer Nonreactive (NONREACTIVE) 07/16/18 07:10 lab noted - Treatment Hospital Course: Detox Protocol Followed, Detoxed Safely, Responded well, Discharged Condition Good, Rehab Referral Accepted Patient has Accepted a Rehab Referral to: [facility] - Medication Discharge Medications: Ambulatory Orders Darunavir Ethanolate [Prezista -] 800 mg PO DAILY #30 tablet 08/12/17 Emtricitabine/Tenofovir (Tdf) [Truvada 200 mg-300 mg Tablet] 1 each PO DAILY Ritonavir [Norvir -] 100 mg PO DAILY 01/30/18 Amlodipine Besylate [Norvasc -] 10 mg PO DAILY #30 tablet 04/07/18 Atorvastatin Calcium [Lipitor] 10 mg PO HS #30 tablet 04/07/18 Pantoprazole Sodium [Protonix -] 40 mg PO DAILY #30 tablet.ec 04/07/18 Gabapentin [Neurontin] 600 mg PO Q8H 05/17/18 Buspirone HCl [Buspar -] 5 mg PO BID #60 tablet 05/25/18 Escitalopram Oxalate [Lexapro -] 20 mg PO DAILY #30 tablet 05/25/18 Quetiapine Fumarate [Seroquel -] 50 mg PO BID #60 tablet 05/25/18 - Diagnosis (1) Alcohol dependence with withdrawal Current Visit: Yes Status: Acute Qualifiers: Complication of substance-induced condition: uncomplicated Qualified Code(s ): F10.230 - Alcohol dependence with withdrawal, uncomplicated (2) Substance induced mood disorder Current Visit: Yes Status: Suspected (3) HTN (hypertension) Current Visit: Yes Status: Chronic Qualifiers: Hypertension type: essential hypertension Qualified Code(s): I10 - Essential (primary) hypertension (4) Hepatitis C Current Visit: Yes Status: Chronic Qualifiers: Viral hepatitis chronicity: unspecified Hepatic coma status: without hepatic coma Qualified Code(s): B19.20 - Unspecified viral hepatitis C without hepatic coma - AMA Did Patient Leave Against Medical Advice: No
== END 2018-07-19 10:20 | disposition home or self-care (01) | DRG 774 ==
LOC: YASAS 22:07 → Y3N 22:45
PROC: HZ2ZZZZ Detoxification Services for Substance Abuse Treatment (ICD-10-PCS; principal; 2018-07-15)
DX: F10.230 Alcohol dependence with withdrawal, uncomplicated (principal); F14.20 Cocaine dependence, uncomplicated; F31.81 Bipolar II disorder; F19.24 Other psychoactive substance dependence with psychoactive substance-induced mood disorder; F19.282 Other psychoactive substance dependence with psychoactive substance-induced sleep disorder; Z21 Asymptomatic human immunodeficiency virus [HIV] infection status; D64.9 Anemia, unspecified; E87.6 Hypokalemia; E83.51 Hypocalcemia; R82.90 Unspecified abnormal findings in urine; R79.89 Other specified abnormal findings of blood chemistry; B18.2 Chronic viral hepatitis C; G40.509 Epileptic seizures related to external causes, not intractable, without status epilepticus; I10 Essential (primary) hypertension; I95.9 Hypotension, unspecified; M12.9 Arthropathy, unspecified; M21.061 Valgus deformity, not elsewhere classified, right knee; G62.9 Polyneuropathy, unspecified; Z91.5 Personal history of self-harm
CPT/HCPCS: 36415; 80048; 80053; 81003; 81015; 85027; 86593